=== PATIENT | male | born 1945 | race American Indian/Alaskan Native ===

== ENCOUNTER 2020-02-26 11:56 | Inpatient (IN) | payer MEDICARE ==
[2020-02-26] MEDS ORDERED: SODIUM CHLORIDE 0.9% 500 ML 500 ML IV ONE ×2 (13:12→14:08)
[2020-02-26] MEDS ORDERED: fentaNYL 100 MCG/2 ML INJ IV ONE (13:14)
--- NOTE | 2020-02-26 13:14 | Emergency Department Report ---
ED General Adult HPI - General Chief complaint: GI Bleed Stated complaint: BLOODY STOOL PUI?: No Time Seen by Provider: 02/26/20 12:39 Source: patient, EMS (Verbal report received from emergency medical services. EMS documentation not available at time of chart dictation ), RN notes reviewed, old records reviewed Mode of arrival: Stretcher Limitations: Altered Mental Status, Physical Limitation - History of Present Illness Initial comments: The patient was evaluated in the emergency department for symptoms described in the history of present illness. He/she was evaluated in the context of the global COVID-19 pandemic, which necessitated consideration that the patient might be at risk for infection with the virus that causes COVID-19. Institutional protocols and algorithms that pertain to the evaluation of patients at risk for COVID-19 are in a state of rapid change based on information released by regulatory bodies including the CDC and federal and state organizations. These policies and algorithms were followed during the patient's care in the emergency department. Please note that these policies, procedures and recommendations changed on a rapid basis. The patient is a 74-year-old gentleman. His primary care doctor appears to be a Dr. Jesus Alberto Rivera This medical history is complex and complicated, including recent admission to [facility], for sepsis secondary to urinary tract infection, cystitis, congestive heart failure, hyponatremia, hyperkalemia, gout, intractable pain. Patient has a left upper extremity midline or PICC line, in place, for unclear reasons. He also has a history of portal vein thrombosis, and has been on Coumadin. He is sent to the emergency room by a local [facility]p, with a complaint of possible GI bleed. The patient is a poor historian. The patient indicates diffuse bony pain, which appears to be chronic secondary to his underlying gout. He denies headache, neck pain, chest pain, abdominal pain or shortness of breath. Patient is a poor historian, and has difficulty describing open-ended nature of his symptoms, specifically, he is not able to tell me when his bleeding started, and he is not able to describe the qualitative nature of his symptoms, exacerbating factors, relieving factors, or aggravating factors. He does not know when he last took Coumadin, or systemic anticoagulation. It appears, as per his current prescription database, that he takes 5 mg of Coumadin, each evening. -: unknown Radiation: other Severity scale (0 -10): 0 Quality: other Consistency: other Improves with: other Worsens with: other Associated Symptoms: other - Related Data Allergies Allergy/AdvReac Type Severity Reaction Status Date / Time No Known Allergies Allergy Unverified 02/26/20 12:48 ED Review of Systems ROS: Stated complaint: BLOODY STOOL Other details as noted in HPI Comment: Unobtainable due to pts medical conditions Musculoskeletal: arthralgia, myalgia ED Past Medical Hx - Past Medical History Previous Medical History?: Yes - Social History Smoking Status: Unknown if ever smoked ED Physical Exam - General Limitations: Altered Mental Status, Physical Limitation General appearance: anxious, in distress - Head Head exam: Present: atraumatic, normocephalic - Eye Eye exam: Present: normal appearance, EOMI - ENT ENT exam: Present: mucous membranes dry, normal external ear exam - Neck Neck exam: Present: normal inspection, full ROM. Absent: tenderness, meningismus - Respiratory Respiratory exam: Present: decreased breath sounds. Absent: respiratory distress, wheezes, rales, rhonchi, stridor - Cardiovascular Cardiovascular Exam: Present: normal rhythm, tachycardia, normal heart sounds. Absent: regular rate, bradycardia, irregular rhythm, systolic murmur, diastolic murmur, rubs, gallop - GI/Abdominal GI/Abdominal exam: Present: soft. Absent: distended, tenderness, guarding, rebound, rigid, pulsatile mass - Rectal Rectal exam: Present: normal inspection, heme (+) stool, bloody stool, other (Chaperoned by nurse [facility]) - Extremities Exam Extremities exam: Present: full ROM, pedal edema, other (1+ pulses noted in the bilateral upper extremities. 1+ femoral pulses noted in the bilateral lower extremities.). Absent: normal inspection (Chronic venous stasis noted in the bilateral lower extremities. Surgical scar/site noted with stitches on the right foot, stitches in place, without redness, pus or streaking. Patient has diffuse tophi and gouty lesions on his upper and lower extremities. There is a left upper extremity PICC line or midline.), calf tenderness - Back Exam Back exam: Present: normal inspection. Absent: tenderness, CVA tenderness (R), CVA tenderness (L), paraspinal tenderness, vertebral tenderness - Neurological Exam Neurological exam: Present: alert, other (No facial droop. Tongue midline. Extraocular movements intact bilaterally. Facial sensation intact to light touch in V1, V2, V3 distribution bilaterally. 5 and a 5 strength in 4 extremities. Sensation intact to light touch in 4 extremities.) - Psychiatric Psychiatric exam: Present: anxious - Skin Skin exam: Present: warm ED Course Vital Signs 02/26/20 12:52 Temperature 98.1 F Pulse Rate 111 H Respiratory 16 Rate Blood Pressure 119/65 [Right] O2 Sat by Pulse 100 Oximetry ED Medical Decision Making - Lab Data Result diagrams: 02/26/20 13:34 02/26/20 13:34 Vital Signs 02/26/20 12:52 Temperature 98.1 F Pulse Rate 111 H Respiratory 16 Rate Blood Pressure 119/65 [Right] O2 Sat by Pulse 100 Oximetry Lab Results 02/26/20 02/26/20 02/26/20 Range/Units 13:34 13:34 13:34 WBC 10.2 (4.5-11.0) K/mm3 RBC 2.02 L (3.65-5.03) M/mm3 Hgb 5.7 L* (11.8-15.2) gm/dl Hct 18.3 L* (35.5-45.6) % MCV 90 (84-94) fl MCH 28 (28-32) pg MCHC 31 L (32-34) % RDW 19.7 H (13.2-15.2) % Plt Count 282 (140-440) K/mm3 Lymph % (Auto) 12.6 L (13.4-35.0) % Gem % (Auto) 7.9 H (0.0-7.3) % Eos % (Auto) 1.5 (0.0-4.3) % Baso % (Auto) 0.3 (0.0-1.8) % Lymph # (Auto) 1.3 (1.2-5.4) K/mm3 Gem # (Auto) 0.8 (0.0-0.8) K/mm3 Eos # (Auto) 0.2 (0.0-0.4) K/mm3 Baso # (Auto) 0.0 (0.0-0.1) K/mm3 Seg Neutrophils % 77.7 H (40.0-70.0) % Seg Neutrophils # 7.9 H (1.8-7.7) K/mm3 PT (12.2-14.9) Sec. INR (0.87-1.13) APTT (24.2-36.6) Sec. Sodium (137-145) mmol/L Potassium (3.6-5.0) mmol/L Chloride (98-107) mmol/L Carbon Dioxide (22-30) mmol/L Anion Gap mmol/L BUN (9-20) mg/dL Creatinine (0.8-1.3) mg/dL Estimated GFR ml/min BUN/Creatinine Ratio % Glucose (75-100) mg/dL Calcium (8.4-10.2) mg/dL Magnesium 2.00 (1.7-2.3) mg/dL Total Bilirubin (0.1-1.2) mg/dL AST (5-40) units/L ALT (7-56) units/L Alkaline Phosphatase (35-129) units/L Total Creatine Kinase 141 (55-170) units/L Total Protein (6.3-8.2) g/dL Albumin (3.9-5) g/dL Albumin/Globulin Ratio % TSH 5.440 H (0.270-4.200) mlU/mL Blood Type Antibody Screen Crossmatch 02/26/20 02/26/20 02/26/20 Range/Units 13:34 13:34 13:34 WBC (4.5-11.0) K/mm3 RBC (3.65-5.03) M/mm3 Hgb (11.8-15.2) gm/dl Hct (35.5-45.6) % MCV (84-94) fl MCH (28-32) pg MCHC (32-34) % RDW (13.2-15.2) % Plt Count (140-440) K/mm3 Lymph % (Auto) (13.4-35.0) % Gem % (Auto) (0.0-7.3) % Eos % (Auto) (0.0-4.3) % Baso % (Auto) (0.0-1.8) % Lymph # (Auto) (1.2-5.4) K/mm3 Gem # (Auto) (0.0-0.8) K/mm3 Eos # (Auto) (0.0-0.4) K/mm3 Baso # (Auto) (0.0-0.1) K/mm3 Seg Neutrophils % (40.0-70.0) % Seg Neutrophils # (1.8-7.7) K/mm3 PT 28.2 H (12.2-14.9) Sec. INR 2.58 H (0.87-1.13) APTT 52.5 H (24.2-36.6) Sec. Sodium 154 H (137-145) mmol/L Potassium 3.8 (3.6-5.0) mmol/L Chloride 119.2 H (98-107) mmol/L Carbon Dioxide 27 (22-30) mmol/L Anion Gap 12 mmol/L BUN 45 H (9-20) mg/dL Creatinine 1.0 (0.8-1.3) mg/dL Estimated GFR > 60 ml/min BUN/Creatinine Ratio 45 % Glucose 260 H (75-100) mg/dL Calcium 7.7 L (8.4-10.2) mg/dL Magnesium (1.7-2.3) mg/dL Total Bilirubin 0.20 (0.1-1.2) mg/dL AST 27 (5-40) units/L ALT < 5 L (7-56) units/L Alkaline Phosphatase 97 (35-129) units/L Total Creatine Kinase (55-170) units/L Total Protein 5.4 L (6.3-8.2) g/dL Albumin 1.6 L (3.9-5) g/dL Albumin/Globulin Ratio 0.4 % TSH (0.270-4.200) mlU/mL Blood Type A POSITIVE Antibody Screen Negative Crossmatch See Detail - EKG Data -: EKG Interpreted by Ut EKG shows normal: sinus rhythm Rate: normal - EKG Data When compared to previous EKG there are: previous EKG unavailable 02/26/20 16:07 Sinus rhythm, tachycardia, left axis deviation, QTC within normal limits, motion artifact, SD interval within normal limits, the EKG is abnormal, the EKG is not a STEMI, low voltage in the lateral leads. - Radiology Data Radiology results: report reviewed, image reviewed Print Report Referring Physician: JADEN SCOTT Patient Name: NEERAJ HERNANDEZ Date of : 1945 Sex: Male Report Date: 2020-02-26 Report Status: Finalized Findings [facility] [address] [place] [address] XRay Report Signed Patient: NEERAJ HERNANDEZ MR#: [id number] : 1945 Acct:[id number] Age/Sex: 74 / M ADM Date: 02/26/20 Loc: ED Attending Dr: Ordering Physician: JADEN SCOTT MD Date of Service: 02/26/20 Procedure(s): XR chest 1V ap Accession Number(s): [id number] cc: JADEN SCOTT MD Fluoro Time In Minutes: CHEST 1 VIEW 02/26/2020 1:29 PM INDICATION / CLINICAL INFORMATION: Congestive heart failure, GI bleed COMPARISON: None available. FINDINGS: SUPPORT DEVICES: None. HEART / MEDIASTINUM: No significant abnormality. LUNGS / PLEURA: There is mild increase in the interstitial markings bilaterally. These are prominently perihilar and basilar. There is mild venous congestion. No pneumothorax. ADDITIONAL FINDINGS: No significant additional findings. IMPRESSION: 1. Mild interstitial disease likely represents pulmonary edema. Signer Name: Luther Aguiar MD Signed: 02/26/2020 1:35 PM Workstation Name: [id number] Transcribed By: SS Dictated By: Luther Aguiar MD Electronically Authenticated By: Luther Aguiar MD Signed Date/Time: 02/26/201334 DD/ 33 TD/TT: - Medical Decision Making Differential diagnosis, including but not limited to: Lower GI bleed, Coumadin toxicity, dehydration, electrolyte derangement, pneumonia, urinary tract infection Assessment and plan: 74-year-old gentleman, on Coumadin, for portal venous thrombosis, INR greater than 2.6, hemoglobin 5, hematocrit 18, with dark red blood per rectum. Establish IV access, start IV fluids, give for factor prothrombin complex concentrate, 25 units/kg, initiate vitamin K therapy. IV fluids ordered, urinalysis pending. Transfuse 1 unit of packed red blood cells. Discussed with gastroenterology on-call, Dr. William Tan, we discussed the patient's history, physical, and pertinent laboratory studies. He will see the patient in consultation. Urinalysis pending at this time, discussed with hospital physician, Dr. Jatinder Nunez, who has accepted the patient to the medical service. Hypernatremia reviewed and appreciated, suspect dehydration. Patient has dry mucous membranes. We will defer to the inpatient team to follow-up on urinalysis. Prognosis is guarded. Critical Care Time: Yes Critical care time in (mins) excluding proc time.: 35 Critical care attestation.: If time is entered above; I have spent that time in minutes in the direct care of this critically ill patient, excluding procedure time. ED Disposition Clinical Impression: GI bleed, Coumadin toxicity, Hypernatremia, Gout Disposition: OP ADMIT IP TO THIS HOSP Is pt being admited?: Yes Does the pt Need Aspirin: No Condition: Serious
--- NOTE | 2020-02-26 13:40 | XRay Report ---
CHEST 1 VIEW 02/26/2020 1:29 PM INDICATION / CLINICAL INFORMATION: Congestive heart failure, GI bleed COMPARISON: None available. FINDINGS: SUPPORT DEVICES: None. HEART / MEDIASTINUM: No significant abnormality. LUNGS / PLEURA: There is mild increase in the interstitial markings bilaterally. These are prominentl y perihilar and basilar. There is mild venous congestion. No pneumothorax. ADDITIONAL FINDINGS: No significant additional findings. IMPRESSION: 1. Mild interstitial disease likely represents pulmonary edema. Signer Name: Luther Aguiar MD Signed: 02/26/2020 1:35 PM Workstation Name: [id number]
[2020-02-26 14:02] LABS: Basophils % (Auto) 0.3 % (0.0-1.8); Eosinophils # (Auto) 0.2 K/mm3 (0.0-0.4); Eosinophils % (Auto) 1.5 % (0.0-4.3); Lymphocytes # (Auto) 1.3 K/mm3 (1.2-5.4); Lymphocytes % (Auto) 12.6 % (13.4-35.0); Mean Corpuscular HGB Conc 31 % (32-34); Mean Corpuscular Volume 90 fl (84-94); Monocytes # (Auto) 0.8 K/mm3 (0.0-0.8); Monocytes % (Auto) 7.9 % (0.0-7.3); Platelet Count 282 K/mm3 (140-440); Red Blood Count 2.02 M/mm3 (3.65-5.03); Red Cell Distribution Width 19.7 % (13.2-15.2)
[2020-02-26 14:06] LABS: Hematocrit 18.3 % (35.5-45.6); Hemoglobin 5.7 gm/dl (11.8-15.2)
[2020-02-26 14:17] LABS: INR 2.58 (0.87-1.13)
[2020-02-26] MEDS ORDERED: PHYTONADIONE(ADULT ONLY) 10 MG in SODIUM CHLORIDE 0.9% 50 ML IV ONE (14:18)
[2020-02-26] MEDS ORDERED: PROTHROMBIN COMPLEX HUMAN IV ONE (14:18)
[2020-02-26 14:19] LABS: Partial Thromboplastin Time 52.5 Sec. (24.2-36.6)
[2020-02-26 14:25] LABS: Albumin 1.6 g/dL (3.9-5); BUN/Creatinine Ratio 45; Blood Urea Nitrogen 45 mg/dL (9-20); Calcium 7.7 mg/dL (8.4-10.2); Hemolysis Index 2
--- NOTE | 2020-02-26 14:43 | History and Physical Report ---
History of Present Illness Chief complaint: He is bleeding History of present illness: 74 YO Male [facility] with CHF, Hyponatremia, Gout, Vascular Dementia, Cerebral Atherosclerosis, OA, Portal Vein Thrombosis on Therapeutic Anticoagulation with Comadin presents to ED for evaluation. Patient is confused with diminished cognition and unable to provide detailed history. Patient history taken from EMS staff, ED staff as well as halfway facility staff. As per staff the patient was found to have large volume rectal bleeding today. EMS was notified and upon arrival the patient was found to be in distress and subsequently transported to [facility] for further care and evaluation of the aforementioned symptoms. Patient seen and evaluated in the emergency department. Lab and imaging studies reviewed. Patient found to be Hemoccult positive. Patient found to have symptoms consistent with GI bleed, hyponatremia. Patient admitted to [facility] and initiated on GI bleed protocol. Patient also treated with blood transfusion for concomitant symptomatic anemia. GI team consulted in ED. Patient pending endoscopy as per GI team. Patient is confused with diminished cognition but has positive gag reflex and is able to protect his airway without difficulty. No prior admission for review. No further history is obtainable. All medication listed at time of admission has been reconciled. Past History Past Medical History: heart failure, other (See HPI) Past Surgical History: No surgical history, Other (Reviewed) Social history: . denies: smoking, alcohol abuse, prescription drug abuse Family history: hypertension Medications and Allergies Allergies Allergy/AdvReac Type Severity Reaction Status Date / Time No Known Allergies Allergy Unverified 02/26/20 12:48 Home Medications Medication Instructions Recorded Confirmed Last Taken Type Acetaminophen [Tylenol] 650 mg PO Q8HR 02/26/20 02/26/20 Unknown History AtorvaSTATin [Lipitor] 10 mg PO QHS 02/26/20 02/26/20 Unknown History Cetirizine HCl [ZyrTEC 10mg rapdis] 10 mg PO QDAY 02/26/20 02/26/20 Unknown History Colchicine 0.6 mg PO BID 02/26/20 02/26/20 Unknown History Insulin Lispro 0 unit SQ ACHS 02/26/20 02/26/20 Unknown History Latanoprost 0.005% [Xalatan 0.005%] 1 drop OP QPM 02/26/20 02/26/20 Unknown History Melatonin [Melatonin 5MG CAP] 5 mg PO QHS 02/26/20 02/26/20 Unknown History Timolol 0.5% [Timoptic] 1 drops OP BID 02/26/20 02/26/20 Unknown History Warfarin Sodium [Coumadin] 5 mg PO QHS 02/26/20 02/26/20 Unknown History amLODIPine [Norvasc] 5 mg PO DAILY 02/26/20 02/26/20 Unknown History carvediloL [Coreg] 25 mg PO BID 02/26/20 02/26/20 Unknown History clonazePAM [ Klonopin] 0.5 mg PO BID PRN 02/26/20 02/26/20 Unknown History dronabinoL [Marinol] 5 mg PO QDAY 02/26/20 02/26/20 Unknown History Active Meds: Active Medications Phytonadione 10 mg/ Sodium (Chloride) 51 mls @ 100 mls/hr IV ONCE ONE Stop: 02/26/20 14:48 PROTHROMBIN COMPLEX HUMAN(PCC) 1,575 unit/ Miscellaneous Information 500 mls @ 0 mls/hr IV ONCE ONE Stop: 02/26/20 14:19 Review of Systems ROS unobtainable: due to mental status Exam - Constitutional Vitals: Temp Pulse Resp BP Pulse Ox 98.1 F 111 H 16 119/65 100 02/26/20 12:52 02/26/20 12:52 02/26/20 12:52 02/26/20 12:52 02/26/20 12:52 General appearance: Present: mild distress - EENT Eyes: Present: PERRL (Conjunctival pallor) ENT: hearing intact, clear oral mucosa - Neck Neck: Present: supple, normal ROM - Respiratory Respiratory effort: normal Respiratory: bilateral: CTA - Cardiovascular Rhythm: regular Heart Sounds: Present: S1 & S2 - Extremities Extremities: no ischemia Peripheral Pulses: within normal limits - Abdominal General gastrointestinal: Present: soft, non-tender, non-distended - Integumentary Integumentary: Present: clear, dry - Musculoskeletal Musculoskeletal: generalized weakness - Psychiatric Psychiatric: no appropriate mood/affect, no intact judgment & insight, no memory intact - Neurologic Neurologic: CNII-XII intact, no focal deficits, moves all extremities, no gait normal Results - Labs CBC & Chem 7: 02/26/20 13:34 02/26/20 13:34 Labs: Abnormal lab results 11/04/0402/26/20 02/26/20 Range/Units 13:34 13:34 13:34 RBC 2.02 L (3.65-5.03) M/mm3 Hgb 5.7 L* (11.8-15.2) gm/dl Hct 18.3 L* (35.5-45.6) % MCHC 31 L (32-34) % RDW 19.7 H (13.2-15.2) % Lymph % (Auto) 12.6 L (13.4-35.0) % Reeves % (Auto) 7.9 H (0.0-7.3) % Seg Neutrophils % 77.7 H (40.0-70.0) % Seg Neutrophils # 7.9 H (1.8-7.7) K/mm3 PT 28.2 H (12.2-14.9) Sec. INR 2.58 H (0.87-1.13) APTT 52.5 H (24.2-36.6) Sec. Sodium (137-145) mmol/L Chloride (98-107) mmol/L BUN (9-20) mg/dL Glucose (75-100) mg/dL Calcium (8.4-10.2) mg/dL Total Protein (6.3-8.2) g/dL Albumin (3.9-5) g/dL TSH 5.440 H (0.270-4.200) mlU/mL Crossmatch 02/26/20 02/26/20 Range/Units 13:34 13:34 RBC (3.65-5.03) M/mm3 Hgb (11.8-15.2) gm/dl Hct (35.5-45.6) % MCHC (32-34) % RDW (13.2-15.2) % Lymph % (Auto) (13.4-35.0) % Reeves % (Auto) (0.0-7.3) % Seg Neutrophils % (40.0-70.0) % Seg Neutrophils # (1.8-7.7) K/mm3 PT (12.2-14.9) Sec. INR (0.87-1.13) APTT (24.2-36.6) Sec. Sodium 154 H (137-145) mmol/L Chloride 119.2 H (98-107) mmol/L BUN 45 H (9-20) mg/dL Glucose 260 H (75-100) mg/dL Calcium 7.7 L (8.4-10.2) mg/dL Total Protein 5.4 L (6.3-8.2) g/dL Albumin 1.6 L (3.9-5) g/dL TSH (0.270-4.200) mlU/mL Crossmatch See Detail Assessment and Plan - Patient Problems (1) GI bleed Current Visit: Yes Status: Acute Plan to address problem: GI bleed protocol: IV PPI therapy, GI team consulted in ED, packed red blood cell transfusion, admit to IMCU, supportive care, (2) Hypernatremia Current Visit: Yes Status: Acute Plan to address problem: D5 water, CMP, repeat CMP in a.m. (3) Symptomatic anemia Current Visit: Yes Status: Acute Plan to address problem: Packed red blood cell transfusion, repeat CBC in a.m. (4) Metabolic encephalopathy Current Visit: Yes Status: Acute Plan to address problem: Neuro check, seizure precautions, aspiration precautions, fall precautions, supportive care. (5) Vascular dementia Current Visit: Yes Status: Acute Qualifiers: Dementia behavioral disturbance: without behavioral disturbance Qualified Code(s): F01.50 - Vascular dementia without behavioral disturbance Plan to address problem: Verbal prompting, verbal redirection, benzodiazepine therapy as clinically indicated, supportive care. (6) Cerebral atherosclerosis Current Visit: Yes Status: Acute Plan to address problem: Supportive care, risk factor reduction, low-cholesterol diet. (7) Portal vein thrombosis Current Visit: Yes Status: Acute Plan to address problem: Hold anticoagulation for now due to active GI bleed, supportive care (8) DVT prophylaxis Current Visit: Yes Status: Acute Plan to address problem: SCD to bilateral lower extremities while in bed, hold anticoagulation now due to active GI bleed. (9) Advance care planning Current Visit: Yes Status: Acute Plan to address problem: Disease education conducted, patient is full code, prognosis discussed, halfway facility staff acknowledges understanding and agreement with care plan.
[2020-02-26 14:47] LABS: Alanine Aminotransferase < 5 units/L (7-56)
[2020-02-26] MEDS ORDERED: PROTHROMBIN HUMAN COMPLEX (PCC) PER 1 UNIT IV ONE (15:00)
[2020-02-26] MEDS ORDERED: DEXTROSE 50% IN WATER (25GM) 50 ML SYRINGE IV PRN (18:06)
[2020-02-26] MEDS ORDERED: SODIUM CHLORIDE 0.9% 500 ML 500 ML IV NR (18:11)
[2020-02-26] MEDS: INSULIN LISPRO 100 UNIT/ML VIAL 3 mL SUB-Q SCH (18:50)
[2020-02-26] MEDS ORDERED: fentaNYL 100 MCG/2 ML INJ ONE (19:24)
[2020-02-26] MEDS: fentaNYL 100 MCG/2 ML INJ IV PRN (19:28)
[2020-02-26] MEDS: DEXTROSE 5% IN WATER 1,000 ML IV SCH (21:52)
[2020-02-26] MEDS: PANTOPRAZOLE 40 MG INJ IV SCH (21:52)
[2020-02-27] MEDS: fentaNYL 100 MCG/2 ML INJ IV PRN ×3 (00:33→15:01)
[2020-02-27] MEDS: INSULIN LISPRO 100 UNIT/ML VIAL 3 mL SUB-Q SCH ×4 (00:56→18:02)
[2020-02-27 03:28] LABS: Bilirubin,Urine NEG (Negative); Blood,Urine NEG (Negative); Color,Urine Yellow (Yellow); Hyaline Casts,Urine 1 /LPF; Urobilinogen,Urine < 2.0 mg/dL (<2.0)
[2020-02-27 06:27] LABS: Basophils % (Auto) 0.3 % (0.0-1.8); Eosinophils # (Auto) 0.1 K/mm3 (0.0-0.4); Eosinophils % (Auto) 1.3 % (0.0-4.3); Hematocrit 25.7 % (35.5-45.6); Hemoglobin 8.5 gm/dl (11.8-15.2); Lymphocytes # (Auto) 1.1 K/mm3 (1.2-5.4); Lymphocytes % (Auto) 11.9 % (13.4-35.0); Mean Corpuscular HGB Conc 33 % (32-34); Mean Corpuscular Volume 89 fl (84-94); Monocytes # (Auto) 0.9 K/mm3 (0.0-0.8); Monocytes % (Auto) 9.3 % (0.0-7.3); Platelet Count 203 K/mm3 (140-440); Red Blood Count 2.89 M/mm3 (3.65-5.03); Red Cell Distribution Width 17.5 % (13.2-15.2)
[2020-02-27 06:32] LABS: BUN/Creatinine Ratio 48; Blood Urea Nitrogen 43 mg/dL (9-20); Calcium 7.6 mg/dL (8.4-10.2); Hemolysis Index 2
[2020-02-27] MEDS: DEXTROSE 5% IN WATER 1,000 ML IV SCH (09:00)
[2020-02-27] MEDS: PANTOPRAZOLE 40 MG INJ IV SCH (09:00)
--- NOTE | 2020-02-27 12:19 | Progress Note ---
Assessment and Plan Assessment and plan: GI bleed GI bleed protocol: IV PPI therapy, GI team consulted in ED, packed red blood cell transfusion, admit to IMCU, supportive care, Hypernatremia D5 water, CMP, repeat CMP in a.m. Symptomatic anemia Packed red blood cell transfusion, repeat CBC in a.m. Metabolic encephalopathy Neuro check, seizure precautions, aspiration precautions, fall precautions, supportive care. Vascular dementia Verbal prompting, verbal redirection, benzodiazepine therapy as clinically indicated, supportive care. Cerebral atherosclerosis Supportive care, risk factor reduction, low-cholesterol diet. Portal vein thrombosis Hold anticoagulation for now due to active GI bleed, supportive care DVT prophylaxis SCD to bilateral lower extremities while in bed, hold anticoagulation now due to active GI bleed. History Interval history: No new issues Hospitalist Physical - Constitutional Vitals: Temp Pulse Resp BP Pulse Ox 97.4 F L 104 H 22 112/65 96 02/27/20 08:00 02/27/20 09:01 02/27/20 09:01 02/27/20 09:01 02/27/20 09:01 General appearance: Present: mild distress - EENT Eyes: Present: PERRL, EOM intact ENT: hearing intact, clear oral mucosa, dentition normal - Neck Neck: Present: supple, normal ROM - Respiratory Respiratory effort: normal Respiratory: bilateral: CTA - Cardiovascular Rhythm: regular Heart Sounds: Present: S1 & S2. Absent: gallop, rub - Extremities Extremities: no ischemia, No edema, Full ROM - Abdominal General gastrointestinal: soft, non-tender, non-distended, normal bowel sounds - Integumentary Integumentary: Present: clear, warm, dry - Neurologic Neurologic: CNII-XII intact, moves all extremities Results - Labs CBC & Chem 7: 02/27/20 05:40 02/27/20 05:40 Labs: Laboratory Last Values WBC 9.5 K/mm3 (4.5-11.0) 02/27/20 05:40 RBC 2.89 M/mm3 (3.65-5.03) L 02/27/20 05:40 Hgb 8.5 gm/dl (11.8-15.2) L 02/27/20 05:40 Hct 25.7 % (35.5-45.6) L D 02/27/20 05:40 MCV 89 fl (84-94) 02/27/20 05:40 MCH 30 pg (28-32) 02/27/20 05:40 MCHC 33 % (32-34) 02/27/20 05:40 RDW 17.5 % (13.2-15.2) H 02/27/20 05:40 Plt Count 203 K/mm3 (140-440) 02/27/20 05:40 Lymph % (Auto) 11.9 % (13.4-35.0) L 02/27/20 05:40 [place] % (Auto) 9.3 % (0.0-7.3) H 02/27/20 05:40 Eos % (Auto) 1.3 % (0.0-4.3) 02/27/20 05:40 Baso % (Auto) 0.3 % (0.0-1.8) 02/27/20 05:40 Lymph # (Auto) 1.1 K/mm3 (1.2-5.4) L 02/27/20 05:40 [place] # (Auto) 0.9 K/mm3 (0.0-0.8) H 02/27/20 05:40 Eos # (Auto) 0.1 K/mm3 (0.0-0.4) 02/27/20 05:40 Baso # (Auto) 0.0 K/mm3 (0.0-0.1) 02/27/20 05:40 Seg Neutrophils % 77.2 % (40.0-70.0) H 02/27/20 05:40 Seg Neutrophils # 7.3 K/mm3 (1.8-7.7) 02/27/20 05:40 PT 28.2 Sec. (12.2-14.9) H 02/26/20 13:34 INR 2.58 (0.87-1.13) H 02/26/20 13:34 APTT 52.5 Sec. (24.2-36.6) H 02/26/20 13:34 Sodium 154 mmol/L (137-145) H 02/27/20 05:40 Potassium 3.7 mmol/L (3.6-5.0) 02/27/20 05:40 Chloride 121.3 mmol/L (98-107) H 02/27/20 05:40 Carbon Dioxide 26 mmol/L (22-30) 02/27/20 05:40 Anion Gap 10 mmol/L 02/27/20 05:40 BUN 43 mg/dL (9-20) H 02/27/20 05:40 Creatinine 0.9 mg/dL (0.8-1.3) 02/27/20 05:40 Estimated GFR > 60 ml/min 02/27/20 05:40 BUN/Creatinine Ratio 48 % 02/27/20 05:40 Glucose 302 mg/dL (75-100) H 02/27/20 05:40 POC Glucose 287 mg/dL (70-105) H 02/27/20 05:58 Calcium 7.6 mg/dL (8.4-10.2) L 02/27/20 05:40 Magnesium 2.00 mg/dL (1.7-2.3) 02/26/20 13:34 Total Bilirubin 0.20 mg/dL (0.1-1.2) 02/26/20 13:34 AST 27 units/L (5-40) 02/26/20 13:34 ALT < 5 units/L (7-56) L 02/26/20 13:34 Alkaline Phosphatase 97 units/L (35-129) 02/26/20 13:34 Total Creatine Kinase 141 units/L (55-170) 02/26/20 13:34 Total Protein 5.4 g/dL (6.3-8.2) L 02/26/20 13:34 Albumin 1.6 g/dL (3.9-5) L 02/26/20 13:34 Albumin/Globulin Ratio 0.4 % 02/26/20 13:34 TSH 5.440 mlU/mL (0.270-4.200) H 02/26/20 13:34 Urine Color Yellow (Yellow) 02/26/20 03:10 Urine Turbidity Clear (Clear) 02/26/20 03:10 Urine pH 7.0 (5.0-7.0) 02/26/20 03:10 Ur Specific [place] 1.017 (1.003-1.030) 02/26/20 03:10 Urine Protein 30 mg/dl mg/dL (Negative) 02/26/20 03:10 Urine Glucose (UA) 50 mg/dL (Negative) 02/26/20 03:10 Urine Ketones Tr mg/dL (Negative) 02/26/20 03:10 Urine Blood Neg (Negative) 02/26/20 03:10 Urine Nitrite Neg (Negative) 02/26/20 03:10 Urine Bilirubin Neg (Negative) 02/26/20 03:10 Urine Urobilinogen < 2.0 mg/dL (<2.0) 02/26/20 03:10 Ur Leukocyte Esterase Neg (Negative) 02/26/20 03:10 Urine WBC (Auto) 5.0 /HPF (0.0-6.0) 02/26/20 03:10 Urine RBC (Auto) 1.0 /HPF (0.0-6.0) 02/26/20 03:10 U Epithel Cells (Auto) 1.0 /HPF (0-13.0) 02/26/20 03:10 Hyaline Casts 1 /LPF 02/26/20 03:10 Urine Yeast (Budding) Few /HPF 02/26/20 03:10 Blood Type A POSITIVE 02/26/20 13:34 Antibody Screen Negative 02/26/20 13:34 Crossmatch See Detail 02/26/20 13:34 Vazquez/IV: Voiding Method Condom Catheter IV Catheter Type [Left Upper PICC Line arm] IV Catheter Type [Right Hand] Peripheral IV Active Medications - Current Medications Current Medications: Generic Name Dose Route Start Last Admin Trade Name Freq PRN Reason Stop Dose Admin Dextrose 50 ml 02/26/20 18:06 D50w (25gm) Syringe IV Q30MIN PRN Hypoglycemia Protocol Fentanyl 25 mcg 02/26/20 19:20 02/27/20 06:03 Sublimaze IV 25 mcg Q4H PRN Administration Pain , Severe (7-10) Dextrose 1,000 mls @ 100 mls/hr 02/26/20 19:00 02/27/20 09:00 D5w IV 100 mls/hr DIRECT RADHA Administration Insulin Human Lispro 0 unit 02/26/20 19:00 02/27/20 06:06 Humalog SUB-Q 4 unit Q6H RADHA Administration Protocol Pantoprazole Sodium 40 mg 02/26/20 22:00 02/27/20 09:00 Protonix IV 40 mg BID RADHA Administration Sodium Chloride 10 ml 02/26/20 22:00 02/27/20 09:00 Sodium Chloride Flush Syringe 10 Ml IV 10 ml BID RADHA Administration Sodium Chloride 10 ml 02/26/20 14:44 Sodium Chloride Flush Syringe 10 Ml IV PRN PRN LINE FLUSH Nutrition/Malnutrition Assess - Dietary Evaluation Nutrition/Malnutrition Findings: Nutrition Notes Start: 02/27/20 11:10 Freq: Status: Active Protocol: Document 02/27/20 11:51 AL (Rec: 02/27/20 12:09 AL [id number]) Co-Sign 02/27/20 11:51 MK Nutrition Notes Need for Assessment generated from: MD Order,bag washer,MST Initial or Follow up Assessment Current Diagnosis Heart Failure Other Pertinent Diagnosis vascular dementia, GI bleed, hyponatremia, goat, multiple wounds Current Diet Cardiac/Consistent CHO Labs/Tests Na 154 BUN 43 BG 302 Pertinent Medications HUmalog NS 50 mls/hr Height 5 ft 1 in Weight 69.9 kg [place] Body Weight (kg) 50.90 BMI 29.1 Weight Status Overweight Subjective/Other Information Unable to interview patient d/ t confusion and moaning. Per RN, patient has not been able to eat much of his meals orally. Patient was previously on Glucerna 1.5 at 45 mL/hr for 20 hrs/day at [facility], per chart. Percent of energy/protein needs met: 0%/0% Burn Absent Trauma Absent GI Symptoms None Current % PO Poor (25-49%) Minimum of two criteria No #1 Nutrition Diagnosis Inadequate oral intake Etiology chronic illness As Evidenced by Signs and Symptoms pt has PEG placement, eating < 25% of meals Is patient on ventilator? No Is Patient Ambulatory and/or Out of Bed No REE-([facility]-confined to bed) 1563.216 Calculation Used for Recommendations [facility] Additional Notes Protein Needs: 84-140 (1.2-2 g /kg ABW) Fluid Needs: 1 mL/kcal Nutrition Intervention Change Diet Order: Initiate TF via PEG per GI recommendations Nutrition Support: Glucerna 1.2 at 55 mL/hr (goal rate) Flush 85 mL q4h. Kcal 1,584 Protein (gm) 79 Fluid (mL) 1,063 Goal #1 Initiate TF Goal #2 Meet at least 80% of estimated energy and protein needs via TF Anticipated Discharge Needs: Enteral nutrition support Follow-Up By: 03/01/20 Additional Comments F/U for TF start/intakes
[2020-02-27] MEDS ORDERED: LIDOCAINE MPF (2%) 20 MG/1 ML VIAL 5 ML ONE (15:00)
--- NOTE | 2020-02-27 15:10 | Gastroenterology Consultation ---
History of Present Illness - Reason for Consult Consult date: 02/27/20 Acute blood loss anemia Requesting physician: MUSA HERRERA Past History Past Medical History: anemia (Chronic anemia with hct baseline approx 25; extensive negative w/u [facility]), cancer (Colon Cancer (TisN0) R hemicolectomy 11/2019), diabetes, heart failure (EF 40% [place] 2019), hypertension, hyperlipidemia, other (Portal vein thrombosis (dx 2012; chronic warfarin); gout) Past Surgical History: bowel surgery, Other (R hemicolectomy (Colon cancer 11/2019); Subtotal colectomy (recurrent GI Bleed 11/2019); RLE angioplasty/stent 01/2020; 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 denies: smoking, alcohol abuse, prescription drug abuse Family history: hypertension Medications and Allergies Allergies Allergy/AdvReac Type Severity Reaction Status Date / Time No Known Allergies Allergy Unverified 02/26/20 12:48 Home Medications Medication Instructions Recorded Confirmed Last Taken Type Acetaminophen [Tylenol] 650 mg PO Q8HR 02/26/20 02/26/20 Unknown History AtorvaSTATin [Lipitor] 10 mg PO QHS 02/26/20 02/26/20 Unknown History Cetirizine HCl [ZyrTEC 10mg rapdis] 10 mg PO QDAY 02/26/20 02/26/20 Unknown History Colchicine 0.6 mg PO BID 02/26/20 02/26/20 Unknown History Insulin Lispro 0 unit SQ ACHS 02/26/20 02/26/20 Unknown History Latanoprost 0.005% [Xalatan 0.005%] 1 drop OP QPM 02/26/20 02/26/20 Unknown History Melatonin [Melatonin 5MG CAP] 5 mg PO QHS 02/26/20 02/26/20 Unknown History Timolol 0.5% [Timoptic] 1 drops OP BID 02/26/20 02/26/20 Unknown History Warfarin Sodium [Coumadin] 5 mg PO QHS 02/26/20 02/26/20 Unknown History amLODIPine [Norvasc] 5 mg PO DAILY 02/26/20 02/26/20 Unknown History carvediloL [Coreg] 25 mg PO BID 02/26/20 02/26/20 Unknown History clonazePAM [ Klonopin] 0.5 mg PO BID PRN 02/26/20 02/26/20 Unknown History dronabinoL [Marinol] 5 mg PO QDAY 02/26/20 02/26/20 Unknown History Active Meds: Active Medications Dextrose (D50w (25gm) Syringe) 50 ml IV Q30MIN PRN; Protocol PRN Reason: Hypoglycemia Fentanyl (Sublimaze) 25 mcg IV Q4H PRN PRN Reason: Pain , Severe (7-10) Last Admin: 02/27/20 15:01 Dose: 25 mcg Documented by: Dextrose (D5w) 1,000 mls @ 100 mls/hr IV DIRECT RADHA Last Admin: 02/27/20 09:00 Dose: 100 mls/hr Documented by: Insulin Human Lispro (Humalog) 0 unit SUB-Q Q6H RADHA; Protocol Last Admin: 02/27/20 13:08 Dose: 8 unit Documented by: Pantoprazole Sodium (Protonix) 40 mg IV BID RADHA Last Admin: 02/27/20 09:00 Dose: 40 mg Documented by: Sodium Chloride (Sodium Chloride Flush Syringe 10 Ml) 10 ml IV BID RADHA Last Admin: 02/27/20 09:00 Dose: 10 ml Documented by: Sodium Chloride (Sodium Chloride Flush Syringe 10 Ml) 10 ml IV PRN PRN PRN Reason: LINE FLUSH REVIEWED AND RECONCILED Review of Systems - Review of Systems ROS unobtainable: due to mental status Exam - Constitutional Vital Signs: Temp Pulse Resp BP Pulse Ox 97.6 F 92 H 15 148/66 97 02/27/20 12:00 02/27/20 14:00 02/27/20 14:00 02/27/20 14:00 02/27/20 14:00 General appearance: no acute distress - EENT Eyes: PERRL, EOM intact ENT: hearing intact, poor dentition - Neck Neck: supple, normal ROM - Respiratory Respiratory effort: normal Respiratory: bilateral: CTA - Cardiovascular Rhythm: regular Heart Sounds: Present: S1 & S2 Extremities: no ischemia, No edema - Gastrointestinal General gastrointestinal: Present: soft, non-tender, non-distended, other (PEG in LUQ) - Integumentary Integumentary: Present: clear, warm, dry - Neurologic Neurological: alert and oriented x3 - Labs CBC & Chem 7: 02/27/20 05:40 02/27/20 05:40 Lab Results: Laboratory Results - last 24 hr 02/26/20 02/26/20 02/27/20 03:10 13:34 00:44 WBC RBC Hgb Hct MCV MCH MCHC RDW Plt Count Lymph % (Auto) [place] % (Auto) Eos % (Auto) Baso % (Auto) Lymph # (Auto) [place] # (Auto) Eos # (Auto) Baso # (Auto) Seg Neutrophils % Seg Neutrophils # Sodium Potassium Chloride Carbon Dioxide Anion Gap BUN Creatinine Estimated GFR BUN/Creatinine Ratio Glucose POC Glucose 307 H Calcium Urine Color Yellow Urine Turbidity Clear Urine pH 7.0 Ur Specific [place] 1.017 Urine Protein 30 mg/dl Urine Glucose (UA) 50 Urine Ketones Tr Urine Blood Neg Urine Nitrite Neg Urine Bilirubin Neg Urine Urobilinogen < 2.0 Ur Leukocyte Esterase Neg Urine WBC (Auto) 5.0 Urine RBC (Auto) 1.0 U Epithel Cells (Auto) 1.0 Hyaline Casts 1 Urine Yeast (Budding) Few Blood Type A POSITIVE Antibody Screen Negative Crossmatch See Detail 02/27/20 02/27/20 02/27/20 05:40 05:40 05:58 WBC 9.5 RBC 2.89 L Hgb 8.5 L Hct 25.7 L D MCV 89 MCH 30 MCHC 33 RDW 17.5 H Plt Count 203 Lymph % (Auto) 11.9 L [place] % (Auto) 9.3 H Eos % (Auto) 1.3 Baso % (Auto) 0.3 Lymph # (Auto) 1.1 L [place] # (Auto) 0.9 H Eos # (Auto) 0.1 Baso # (Auto) 0.0 Seg Neutrophils % 77.2 H Seg Neutrophils # 7.3 Sodium 154 H Potassium 3.7 Chloride 121.3 H Carbon Dioxide 26 Anion Gap 10 BUN 43 H Creatinine 0.9 Estimated GFR > 60 BUN/Creatinine Ratio 48 Glucose 302 H POC Glucose 287 H Calcium 7.6 L Urine Color Urine Turbidity Urine pH Ur Specific [place] Urine Protein Urine Glucose (UA) Urine Ketones Urine Blood Urine Nitrite Urine Bilirubin Urine Urobilinogen Ur Leukocyte Esterase Urine WBC (Auto) Urine RBC (Auto) U Epithel Cells (Auto) Hyaline Casts Urine Yeast (Budding) Blood Type Antibody Screen Crossmatch Assessment and Plan - Patient Problems (1) Recurrent gastrointestinal hemorrhage Current Visit: Yes Status: Acute Plan to address problem: - Hx of recurrent GI bleed at [facility]; EGD (-) x 2; R Hemicolectomy then subtotal colectomy 11/2019 for colonic bleeding - No hematemesis or bleeding around PEG - Patient has been on coumadin x 7 years for portal vein thrombosis, but no recent imaging of PV at [place], and not clear he needs this (does have a hx of severe PAD as well as CHF 40%) - Suspect a small bowel source, but would not put patient through small bowel enteroscopy at present; would instead d/c coumadin and observe - Will perform EGD today given recent/new PEG in December - Continue daily protonix (2) Portal vein thrombosis Current Visit: Yes Status: Acute
[2020-02-27] MEDS ORDERED: WATER FOR IRRIG STERILE 1,000 ML BOTTLE ONE (15:14)
[2020-02-27] MEDS ORDERED: WATER FOR IRRIG STERILE 250 ML BOTTLE IR ONE (15:14)
[2020-02-27] MEDS ORDERED: propofoL 200 MG/20 ML VIAL IV ONE ×2 (15:20)
[2020-02-27] MEDS ORDERED: SODIUM CHLORIDE 0.9% 1000 ML 1,000 ML IV SCH (15:30)
--- NOTE | 2020-02-27 15:31 | Anesthesia Day of Surgery ---
Anesthesia Day of Surgery - Day of Surgery Patient Examined: Yes Patient H&P Reviewed: Yes Patient is NPO: No (Emergency case)
--- NOTE | 2020-02-27 15:33 | Anesthesia Consultation ---
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 Patient is confused with diminished cognition and unable to provide detailed history. Spoke with , Felipa Harris, over the phone
[2020-02-27] MEDS ORDERED: SIMPLE SYRUP 15 ML FEEDTUBE PRN ×2 (16:00)
[2020-02-27] MEDS ORDERED: LIPASE 10,500/PROTEASE 25,000/AMYLASE 43,750 (UNITS) DR CAP FEEDTUBE PRN (16:00)
[2020-02-27] MEDS ORDERED: SODIUM BICARBONATE 325 MG TAB FEEDTUBE PRN (16:00)
[2020-02-27] MEDS: SODIUM CHLORIDE 0.45% 1000 ML 1,000 ML IV SCH (16:02)
--- NOTE | 2020-02-27 16:30 | Post Operative Note ---
Pre-op diagnosis: GI Bleed Post-op diagnosis: other (PEG tube present, otherwise negative) Findings: 1. No evidence of upper GI bleeding 2. PEG present in the body of stomach (balloon type) 3. No varices in stomach or esophagus Procedure: EGD Anesthesia: MAC Surgeon: AGUILA STOCKTON Estimated blood loss: none Pathology: none Specimen disposition: other (N/A) Condition: stable Disposition: floor (Recs: 1. Would question need for long-term coumadin given PV thrombosis was 7 years ago, and the patient has a hx of recurrent GI bleeds. 2. Would recommend instead daily plavix (given recent stent in leg). 3. If bleeds on plavix, then could consider SB enteroscopy, but given multiple comorbids, would also consider palliative care discussion with (per [place] recs, he was CPR only already; did not want intubation/ventilation). 4. OK to resume PEG (or PO) feeds.)
--- NOTE | 2020-02-27 16:48 | Post Anesthesia Evaluation ---
- Post Anesthesia Evaluation Patient Participated: Yes Airway Patent: Yes Stable Respiratory Function: Yes Nausea/Vomiting: No Temp > 96.8F: Yes Pain Manageable: Yes Adequeate Hydration: Yes Anesthesia Complications: No Block Receding Appropriately: Not Applicable Patient on Ventilator: No
[2020-02-27] MEDS: MULTIVITAMINS 5 ML ORAL LIQUID FEEDTUBE SCH (17:27)
--- NOTE | 2020-02-27 19:44 | Operative Report ---
PROCEDURE PERFORMED: Esophagogastroduodenoscopy. PREOPERATIVE DIAGNOSIS: Recurrent gastrointestinal bleeding. POSTOPERATIVE DIAGNOSIS: Normal other than the presence of a gastrostomy tube. ENDOSCOPIST: William Tan MD INSTRUMENT: Olympus video endoscope. MEDICATIONS: MAC anesthesia by Anesthesia services. COMPLICATIONS: No apparent complications. ESTIMATED BLOOD LOSS: None. SPECIMENS: None. IMPLANTS: None. ASSISTANTS: None. CONDITION AT COMPLETION: Stable. TECHNIQUE: The patient's was informed of the risks and benefits of the procedure given the patient's chronic mental status changes. After consent was obtained, the patient was placed in the left lateral decubitus position. The above sedative medications were given. His vital signs remained stable throughout the procedure. The instrument was advanced from the mouth to the second portion of the duodenum under direct visualization. At that point, the bowel was insufflated and the endoscope was slowly withdrawn. FINDINGS: 1. No evidence of upper GI bleeding with no bright red blood and no blood clots present. 2. Gastrostomy tube was present in the body of the stomach. 3. No evidence of varices in the stomach or the esophagus. 4. Normal duodenum. RECOMMENDATIONS: 1. I question the need for long-term Coumadin therapy given his portal vein thrombosis was 7 years ago, and the patient has a history of recurrent GI bleeding, requiring subtotal colectomy. 2. I would recommend instead daily Plavix given the recent stent in his leg. If the patient bleeds on Plavix, then I would consider small bowel enteroscopy, but given multiple comorbids, would also consider a palliative care discussion with the . Per the [facility] records, he was CPR only, he did not want intubation or ventilation. 3. Okay to resume PEG or oral feeds. JOB# [id number] VALERIE/NTS
[2020-02-28] MEDS: INSULIN LISPRO 100 UNIT/ML VIAL 3 mL SUB-Q SCH ×4 (01:00→14:00)
[2020-02-28] MEDS: SODIUM CHLORIDE 0.45% 1000 ML 1,000 ML IV SCH ×2 (02:15→12:41)
[2020-02-28 08:37] LABS: Hematocrit 27.3 % (35.5-45.6); Hemoglobin 8.9 gm/dl (11.8-15.2); Mean Corpuscular HGB Conc 33 % (32-34); Mean Corpuscular Volume 89 fl (84-94); Platelet Count 195 K/mm3 (140-440); Red Blood Count 3.07 M/mm3 (3.65-5.03); Red Cell Distribution Width 17.9 % (13.2-15.2)
[2020-02-28 08:50] LABS: INR 1.39 (0.87-1.13)
[2020-02-28 08:57] LABS: Blood Urea Nitrogen 31 mg/dL (9-20); Calcium 7.5 mg/dL (8.4-10.2); Hemolysis Index 8
[2020-02-28 09:00] LABS: BUN/Creatinine Ratio 44
[2020-02-28] MEDS: MULTIVITAMINS 5 ML ORAL LIQUID FEEDTUBE SCH ×2 (09:42→16:23)
[2020-02-28] MEDS: LANSOPRAZOLE 30 MG SOLUTAB FEEDTUBE SCH (09:42)
--- NOTE | 2020-02-28 11:33 | Progress Note ---
Assessment and Plan Assessment and plan: GI bleed GI bleed protocol: IV PPI therapy, GI team consulted in ED, packed red blood cell transfusion, admit to IMCU, supportive care, Hypernatremia D5 water, CMP, repeat CMP in a.m. Symptomatic anemia Packed red blood cell transfusion, repeat CBC in a.m. Metabolic encephalopathy Neuro check, seizure precautions, aspiration precautions, fall precautions, supportive care. Vascular dementia Verbal prompting, verbal redirection, benzodiazepine therapy as clinically indicated, supportive care. Cerebral atherosclerosis Supportive care, risk factor reduction, low-cholesterol diet. Portal vein thrombosis Hold anticoagulation for now due to active GI bleed, supportive care DVT prophylaxis SCD to bilateral lower extremities while in bed, hold anticoagulation now due to active GI bleed. 02/28/2020. Patient with episode of black tarry stool last night and a second episode this morning. Patient is s/p EGD on 02/27/2020 which revealed no evidence of upper GI bleeding and no varices in the stomach or esophagus. Check serial CBC. GI may need to perform SB enteroscopy. However, GI may consider palliative care discussion. Hold Plavix for today. History Interval history: No new issues Hospitalist Physical - Constitutional Vitals: Temp Pulse Resp BP Pulse Ox 97.9 F 110 H 25 H 131/79 99 02/28/20 08:00 02/28/20 09:00 02/28/20 09:00 02/28/20 09:00 02/28/20 09:00 General appearance: Present: mild distress - EENT Eyes: Present: PERRL, EOM intact ENT: hearing intact, clear oral mucosa, dentition normal - Neck Neck: Present: supple, normal ROM - Respiratory Respiratory effort: normal Respiratory: bilateral: CTA - Cardiovascular Rhythm: regular Heart Sounds: Present: S1 & S2. Absent: gallop, rub - Extremities Extremities: no ischemia, No edema, Full ROM - Abdominal General gastrointestinal: soft, non-tender, non-distended, normal bowel sounds - Integumentary Integumentary: Present: clear, warm, dry - Neurologic Neurologic: CNII-XII intact, moves all extremities Results - Labs CBC & Chem 7: 02/28/20 08:08 02/28/20 08:08 Labs: Laboratory Last Values WBC 8.2 K/mm3 (4.5-11.0) 02/28/20 08:08 RBC 3.07 M/mm3 (3.65-5.03) L 02/28/20 08:08 Hgb 8.9 gm/dl (11.8-15.2) L 02/28/20 08:08 Hct 27.3 % (35.5-45.6) L 02/28/20 08:08 MCV 89 fl (84-94) 02/28/20 08:08 MCH 29 pg (28-32) 02/28/20 08:08 MCHC 33 % (32-34) 02/28/20 08:08 RDW 17.9 % (13.2-15.2) H 02/28/20 08:08 Plt Count 195 K/mm3 (140-440) 02/28/20 08:08 Lymph % (Auto) 11.9 % (13.4-35.0) L 02/27/20 05:40 Evangeline % (Auto) 9.3 % (0.0-7.3) H 02/27/20 05:40 Eos % (Auto) 1.3 % (0.0-4.3) 02/27/20 05:40 Baso % (Auto) 0.3 % (0.0-1.8) 02/27/20 05:40 Lymph # (Auto) 1.1 K/mm3 (1.2-5.4) L 02/27/20 05:40 Evangeline # (Auto) 0.9 K/mm3 (0.0-0.8) H 02/27/20 05:40 Eos # (Auto) 0.1 K/mm3 (0.0-0.4) 02/27/20 05:40 Baso # (Auto) 0.0 K/mm3 (0.0-0.1) 02/27/20 05:40 Seg Neutrophils % 77.2 % (40.0-70.0) H 02/27/20 05:40 Seg Neutrophils # 7.3 K/mm3 (1.8-7.7) 02/27/20 05:40 PT 17.2 Sec. (12.2-14.9) H 02/28/20 08:08 INR 1.39 (0.87-1.13) H 02/28/20 08:08 APTT 52.5 Sec. (24.2-36.6) H 02/26/20 13:34 Sodium 148 mmol/L (137-145) H 02/28/20 08:08 Potassium 4.0 mmol/L (3.6-5.0) 02/28/20 08:08 Chloride 118.3 mmol/L (98-107) H 02/28/20 08:08 Carbon Dioxide 20 mmol/L (22-30) L 02/28/20 08:08 Anion Gap 14 mmol/L 02/28/20 08:08 BUN 31 mg/dL (9-20) H 02/28/20 08:08 Creatinine 0.7 mg/dL (0.8-1.3) L 02/28/20 08:08 Estimated GFR > 60 ml/min 02/28/20 08:08 BUN/Creatinine Ratio 44 % 02/28/20 08:08 Glucose 270 mg/dL (75-100) H 02/28/20 08:08 POC Glucose 185 mg/dL (70-105) H 02/27/20 21:32 Calcium 7.5 mg/dL (8.4-10.2) L 02/28/20 08:08 Magnesium 2.00 mg/dL (1.7-2.3) 02/26/20 13:34 Total Bilirubin 0.20 mg/dL (0.1-1.2) 02/26/20 13:34 AST 27 units/L (5-40) 02/26/20 13:34 ALT < 5 units/L (7-56) L 02/26/20 13:34 Alkaline Phosphatase 97 units/L (35-129) 02/26/20 13:34 Total Creatine Kinase 141 units/L (55-170) 02/26/20 13:34 Total Protein 5.4 g/dL (6.3-8.2) L 02/26/20 13:34 Albumin 1.6 g/dL (3.9-5) L 02/26/20 13:34 Albumin/Globulin Ratio 0.4 % 02/26/20 13:34 TSH 5.440 mlU/mL (0.270-4.200) H 02/26/20 13:34 Urine Color Yellow (Yellow) 02/26/20 03:10 Urine Turbidity Clear (Clear) 02/26/20 03:10 Urine pH 7.0 (5.0-7.0) 02/26/20 03:10 Ur Specific [place] 1.017 (1.003-1.030) 02/26/20 03:10 Urine Protein 30 mg/dl mg/dL (Negative) 02/26/20 03:10 Urine Glucose (UA) 50 mg/dL (Negative) 02/26/20 03:10 Urine Ketones Tr mg/dL (Negative) 02/26/20 03:10 Urine Blood Neg (Negative) 02/26/20 03:10 Urine Nitrite Neg (Negative) 02/26/20 03:10 Urine Bilirubin Neg (Negative) 02/26/20 03:10 Urine Urobilinogen < 2.0 mg/dL (<2.0) 02/26/20 03:10 Ur Leukocyte Esterase Neg (Negative) 02/26/20 03:10 Urine WBC (Auto) 5.0 /HPF (0.0-6.0) 02/26/20 03:10 Urine RBC (Auto) 1.0 /HPF (0.0-6.0) 02/26/20 03:10 U Epithel Cells (Auto) 1.0 /HPF (0-13.0) 02/26/20 03:10 Hyaline Casts 1 /LPF 02/26/20 03:10 Urine Yeast (Budding) Few /HPF 02/26/20 03:10 Blood Type A POSITIVE 02/26/20 13:34 Antibody Screen Negative 02/26/20 13:34 Crossmatch See Detail 02/26/20 13:34 Vazquez/IV: Voiding Method Condom Catheter IV Catheter Type [Left Upper Mid-line arm] IV Catheter Type [Right Hand] Peripheral IV Active Medications - Current Medications Current Medications: Generic Name Dose Route Start Last Admin Trade Name Freq PRN Reason Stop Dose Admin Lipase/Protease/Amylase 1 each 02/27/20 16:00 Pancretong Chery 10,500 Unit FEEDTUBE PRN PRN For Clogged Feeding Tube Clopidogrel Bisulfate 75 mg 02/29/20 10:00 Plavix PO QDAY RADHA Dextrose 50 ml 02/26/20 18:06 D50w (25gm) Syringe IV Q30MIN PRN Hypoglycemia Protocol Fentanyl 25 mcg 02/26/20 19:20 02/27/20 15:01 Sublimaze IV 25 mcg Q4H PRN Administration Pain , Severe (7-10) Sodium Chloride 1,000 mls @ 100 mls/hr 02/27/20 16:00 02/28/20 02:15 Nacl 0.45% 1000 Ml IV 100 mls/hr DIRECT RADHA Administration Insulin Human Lispro 0 unit 02/26/20 19:00 02/28/20 07:00 Humalog SUB-Q Not Given Q6H RAHDA Protocol Lansoprazole 30 mg 02/28/20 10:00 02/28/20 09:42 Prevacid Solutab FEEDTUBE 30 mg QDAY RADHA Administration Multivitamins 5 ml 02/27/20 17:00 02/28/20 09:42 Centrum Liq FEEDTUBE 5 ml QDAY RADHA Administration Simple Syrup 15 ml 02/27/20 16:00 Simple Syrup FEEDTUBE PRN PRN Hypoglycemia Simple Syrup 30 ml 02/27/20 16:00 Simple Syrup FEEDTUBE PRN PRN Hypoglycemia Sodium Bicarbonate 325 mg 02/27/20 16:00 Sodium Bicarbonate FEEDTUBE PRN PRN For Clogged Feeding Tube Sodium Chloride 10 ml 02/26/20 22:00 02/28/20 09:43 Sodium Chloride Flush Syringe 10 Ml IV 10 ml BID RADHA Administration Sodium Chloride 10 ml 02/26/20 14:44 Sodium Chloride Flush Syringe 10 Ml IV PRN PRN LINE FLUSH Nutrition/Malnutrition Assess - Dietary Evaluation Nutrition/Malnutrition Findings: Nutrition Notes Start: 02/27/20 11:10 Freq: Status: Active Protocol: Document 02/27/20 11:51 AL (Rec: 02/27/20 12:09 AL [id number]) Co-Sign 02/27/20 11:51 MK Nutrition Notes 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 Per RN, patient has not been able to eat much of his meals orally. Patient was previously on Glucerna 1.5 at 45 mL/hr for 20 hrs/day at [facility], per chart. Percent of energy/protein needs met: 0%/0% Burn Absent Trauma Absent GI Symptoms None Current % PO Poor (25-49%) Minimum of two criteria No #2 Nutrition Diagnosis Increased nutrient needs ( specify in comment below) Comments: protein Etiology wound healing As Evidenced by Signs and Symptoms multiple pressure ulcers #1 Nutrition Diagnosis Inadequate oral intake Etiology chronic illness As Evidenced by Signs and Symptoms pt has PEG placement, eating < 25% of meals Is patient on ventilator? No Is Patient Ambulatory and/or Out of Bed No REE-([facility]-confined to bed) [phone] Calculation Used for Recommendations [facility] Additional Notes Protein Needs: 87-105 g (1.25- 1.5 g/kg) Fluid Needs: 1 mL/kcal Nutrition Intervention Change Diet Order: Initiate TF via PEG per GI recommendations Nutrition Support: Glucerna 1.2 at 55 mL/hr (goal rate) Flush 85 mL q4h. Kcal 1,584 Protein (gm) 79 Fluid (mL) 1,063 Goal #1 Initiate TF Goal #2 Meet at least 80% of estimated energy and protein needs via TF Anticipated Discharge Needs: Enteral nutrition support Follow-Up By: 03/02/20 Additional Comments F/U for TF start/intakes
[2020-02-28 14:21] LABS: Basophils % (Auto) 0.5 % (0.0-1.8); Eosinophils % (Auto) 0.5 % (0.0-4.3); Hemoglobin 6.1 gm/dl (11.8-15.2); Lymphocytes # (Auto) 0.7 K/mm3 (1.2-5.4); Lymphocytes % (Auto) 8.4 % (13.4-35.0); Mean Corpuscular HGB Conc 33 % (32-34); Mean Corpuscular Volume 88 fl (84-94); Monocytes # (Auto) 0.4 K/mm3 (0.0-0.8); Monocytes % (Auto) 5.6 % (0.0-7.3); Platelet Count 137 K/mm3 (140-440); Red Cell Distribution Width 17.6 % (13.2-15.2)
[2020-02-28 14:30] LABS: Hematocrit 18.4 % (35.5-45.6)
--- NOTE | 2020-02-28 16:16 | Gastroenterology Progress Note ---
Assessment and Plan # GI bleed - Hx of recurrent GI bleed at [place]; EGD (-) x 2; R Hemicolectomy then subtotal colectomy 11/2019 for colonic bleeding - No hematemesis or bleeding around PEG - Patient has been on coumadin x 7 years for portal vein thrombosis, but no recent imaging of PV at [place], and not clear he needs this (does have a hx of severe PAD as well as CHF 40%) - Suspect a small bowel source - s/p EGD on 02/27/2020. No evidence of upper GI bleeding. PEG in place. - recurrent bleeding with new drop in H/H down 6.1 Rec - transfuse with Hgb goal >7. - monitor H/H. - ordered NM bleeding scan. - pending bleeding scan results. will plan for small bowel enteroscopy. - hold anticoagulation. - NPO MN. hold tube feeds at midnight. Subjective Date of service: 02/28/20 Interval history: Per nursing, patient had two black tarry stools today. Hgb down to 6.1 from 8 this morning. Objective - Constitutional Vitals: Temp Pulse Resp BP Pulse Ox 98.1 F 110 H 25 H 131/79 99 02/28/20 12:06 02/28/20 09:00 02/28/20 09:00 02/28/20 09:00 02/28/20 09:00 General appearance: no acute distress - EENT ENT: hearing intact - Respiratory Respiratory effort: normal - Cardiovascular Rhythm: regular Heart Sounds: Present: S1 & S2 - Gastrointestinal General gastrointestinal: Present: soft, non-tender, non-distended - Labs CBC & Chem 7: 02/28/20 14:08 02/28/20 08:08 Labs: Laboratory Results - last 24 hr 02/27/20 02/27/20 02/27/20 12:43 17:51 21:32 WBC RBC Hgb Hct MCV MCH MCHC RDW Plt Count Lymph % (Auto) Bennett % (Auto) Eos % (Auto) Baso % (Auto) Lymph # (Auto) Bennett # (Auto) Eos # (Auto) Baso # (Auto) Seg Neutrophils % Seg Neutrophils # PT INR Sodium Potassium Chloride Carbon Dioxide Anion Gap BUN Creatinine Estimated GFR BUN/Creatinine Ratio Glucose POC Glucose 390 H 267 H 185 H Calcium 11/02/28/20 02/28/20 08:08 08:08 08:08 WBC 8.2 RBC 3.07 L Hgb 8.9 L Hct 27.3 L MCV 89 MCH 29 MCHC 33 RDW 17.9 H Plt Count 195 Lymph % (Auto) Bennett % (Auto) Eos % (Auto) Baso % (Auto) Lymph # (Auto) Bennett # (Auto) Eos # (Auto) Baso # (Auto) Seg Neutrophils % Seg Neutrophils # PT 17.2 H INR 1.39 H Sodium 148 H Potassium 4.0 Chloride 118.3 H Carbon Dioxide 20 L Anion Gap 14 BUN 31 H Creatinine 0.7 L Estimated GFR > 60 BUN/Creatinine Ratio 44 Glucose 270 H POC Glucose Calcium 7.5 L 02/28/20 02/28/20 11:54 14:08 WBC 7.9 RBC 2.10 L Hgb 6.1 L Hct 18.4 L* D MCV 88 MCH 29 MCHC 33 RDW 17.6 H Plt Count 137 L Lymph % (Auto) 8.4 L Bennett % (Auto) 5.6 Eos % (Auto) 0.5 Baso % (Auto) 0.5 Lymph # (Auto) 0.7 L Bennett # (Auto) 0.4 Eos # (Auto) 0.0 Baso # (Auto) 0.0 Seg Neutrophils % 85.0 H Seg Neutrophils # 6.7 PT INR Sodium Potassium Chloride Carbon Dioxide Anion Gap BUN Creatinine Estimated GFR BUN/Creatinine Ratio Glucose POC Glucose 368 H Calcium
[2020-02-28] MEDS ORDERED: SODIUM CHLORIDE 0.9% 500 ML 500 ML IV SCH (16:29)
--- NOTE | 2020-02-28 20:20 | Nuclear Medicine Report ---
NUCLEAR MEDICINE GI BLEED STUDY INDICATION / CLINICAL INFORMATION: GI bleed. TECHNIQUE: 21.8 mCi of [id number]-labeled RBCs were injected IV. Images were obtained of the abdomen were obtained for 60 minutes. COMPARISON: No relevant prior imaging study available. FINDINGS: Normal distribution of activity within the labeled blood pool with visualization of the heart, liver, spleen, and genitourinary tract. Normal vessels are identified. No abnormal focus of activity is identified. IMPRESSION: 1. No evidence of active GI bleeding over 1 hour. Signer Name: Tommy Pete MD Signed: 02/28/2020 8:15 PM Workstation Name: [id number]
[2020-02-28 23:33] LABS: Hematocrit 24.9 % (35.5-45.6)
[2020-02-29] MEDS ORDERED: SODIUM CHLORIDE 0.9% 500 ML 500 ML IV ONE (00:44)
[2020-02-29] MEDS: INSULIN LISPRO 100 UNIT/ML VIAL 3 mL SUB-Q SCH ×3 (01:15→17:01)
[2020-02-29] MEDS: SODIUM CHLORIDE 0.45% 1000 ML 1,000 ML IV SCH (02:33)
[2020-02-29 06:07] LABS: Basophils % (Auto) 0.3 % (0.0-1.8); Eosinophils # (Auto) 0.1 K/mm3 (0.0-0.4); Eosinophils % (Auto) 0.9 % (0.0-4.3); Hematocrit 23.4 % (35.5-45.6); Hemoglobin 7.5 gm/dl (11.8-15.2); Lymphocytes # (Auto) 1.1 K/mm3 (1.2-5.4); Mean Corpuscular HGB Conc 32 % (32-34); Mean Corpuscular Volume 89 fl (84-94); Monocytes # (Auto) 0.8 K/mm3 (0.0-0.8); Monocytes % (Auto) 7.1 % (0.0-7.3); Platelet Count 219 K/mm3 (140-440); Red Blood Count 2.62 M/mm3 (3.65-5.03); Red Cell Distribution Width 17.8 % (13.2-15.2)
[2020-02-29 06:42] LABS: Blood Urea Nitrogen 25 mg/dL (9-20); Calcium 7.5 mg/dL (8.4-10.2); Hemolysis Index 8
[2020-02-29 06:46] LABS: BUN/Creatinine Ratio 36
--- NOTE | 2020-02-29 09:32 | Progress Note ---
Assessment and Plan Assessment and plan: GI bleed Hx of recurrent GI bleed at [place]; EGD (-) x 2; R Hemicolectomy then subtotal colectomy 11/2019 for colonic bleeding Hypernatremia D5 water, CMP, repeat CMP in a.m. Symptomatic anemia Patient has been on coumadin x 7 years for portal vein thrombosis, but no recent imaging of PV at [place], and not clear he needs this (does have a hx of severe PAD as well as CHF 40%) Metabolic encephalopathy Neuro check, seizure precautions, aspiration precautions, fall precautions, supportive care. Chronic systolic heart failure. EF 40%. Compensated Vascular dementia Verbal prompting, verbal redirection, benzodiazepine therapy as clinically indicated, supportive care. Cerebral atherosclerosis Supportive care, risk factor reduction, low-cholesterol diet. Portal vein thrombosis Hold anticoagulation for now due to active GI bleed, supportive care Severe PAD. DVT prophylaxis SCD to bilateral lower extremities while in bed, hold anticoagulation now due to active GI bleed. 02/28/2020. Patient with episode of black tarry stool last night and a second episode this morning. Patient is s/p EGD on 02/27/2020 which revealed no evidence of upper GI bleeding and no varices in the stomach or esophagus. Check serial CBC. GI may need to perform SB enteroscopy. However, GI may consider palliative care discussion. Hold Plavix for today. 02/29/2020. Patient is s/p EGD on 02/27/2020. No evidence of upper GI bleeding. PEG in place. Preliminary nuclear medicine bleeding scan showed no evidence of bleeding over 1 hour. GI considering small bowel enteroscopy. Patient has received a total of 3 units PRBCs since admission. Patient with more episodes of black tarry stools occurring last night as well as this morning per nursing. Recheck CBC later today. History Interval history: No new issues. Patient with episodes of black tarry stools as noted previously yesterday. Patient with more episodes of black tarry stools occurring last night as well as this morning per nursing. Hospitalist Physical - Constitutional Vitals: Temp Pulse Resp BP Pulse Ox 97.6 F 109 H 22 139/79 98 02/29/20 04:00 02/29/20 07:01 02/29/20 07:01 02/29/20 07:01 02/29/20 07:01 General appearance: Present: mild distress - EENT Eyes: Present: PERRL, EOM intact ENT: hearing intact, clear oral mucosa, dentition normal - Neck Neck: Present: supple, normal ROM - Respiratory Respiratory effort: normal Respiratory: bilateral: CTA - Cardiovascular Rhythm: regular Heart Sounds: Present: S1 & S2. Absent: gallop, rub - Extremities Extremities: no ischemia, No edema, Full ROM - Abdominal General gastrointestinal: soft, non-tender, non-distended, normal bowel sounds - Integumentary Integumentary: Present: clear, warm, dry - Neurologic Neurologic: CNII-XII intact, moves all extremities Results - Labs CBC & Chem 7: 02/29/20 05:13 02/29/20 05:13 Labs: Laboratory Last Values WBC 11.2 K/mm3 (4.5-11.0) H 02/29/20 05:13 RBC 2.62 M/mm3 (3.65-5.03) L 02/29/20 05:13 Hgb 7.5 gm/dl (11.8-15.2) L 02/29/20 05:13 Hct 23.4 % (35.5-45.6) L 02/29/20 05:13 MCV 89 fl (84-94) 02/29/20 05:13 MCH 29 pg (28-32) 02/29/20 05:13 MCHC 32 % (32-34) 02/29/20 05:13 RDW 17.8 % (13.2-15.2) H 02/29/20 05:13 Plt Count 219 K/mm3 (140-440) 02/29/20 05:13 Lymph % (Auto) 10.0 % (13.4-35.0) L 02/29/20 05:13 [place] % (Auto) 7.1 % (0.0-7.3) 02/29/20 05:13 Eos % (Auto) 0.9 % (0.0-4.3) 02/29/20 05:13 Baso % (Auto) 0.3 % (0.0-1.8) 02/29/20 05:13 Lymph # (Auto) 1.1 K/mm3 (1.2-5.4) L 02/29/20 05:13 [place] # (Auto) 0.8 K/mm3 (0.0-0.8) 02/29/20 05:13 Eos # (Auto) 0.1 K/mm3 (0.0-0.4) 02/29/20 05:13 Baso # (Auto) 0.0 K/mm3 (0.0-0.1) 02/29/20 05:13 Seg Neutrophils % 81.7 % (40.0-70.0) H 02/29/20 05:13 Seg Neutrophils # 9.2 K/mm3 (1.8-7.7) H 02/29/20 05:13 PT 17.2 Sec. (12.2-14.9) H 02/28/20 08:08 INR 1.39 (0.87-1.13) H 02/28/20 08:08 APTT 52.5 Sec. (24.2-36.6) H 02/26/20 13:34 Sodium 148 mmol/L (137-145) H 02/29/20 05:13 Potassium 3.6 mmol/L (3.6-5.0) 02/29/20 05:13 Chloride 118.1 mmol/L (98-107) H 02/29/20 05:13 Carbon Dioxide 22 mmol/L (22-30) 02/29/20 05:13 Anion Gap 12 mmol/L 02/29/20 05:13 BUN 25 mg/dL (9-20) H 02/29/20 05:13 Creatinine 0.7 mg/dL (0.8-1.3) L 02/29/20 05:13 Estimated GFR > 60 ml/min 02/29/20 05:13 BUN/Creatinine Ratio 36 % 02/29/20 05:13 Glucose 200 mg/dL (75-100) H 02/29/20 05:13 POC Glucose 208 mg/dL (70-105) H 02/29/20 05:40 Calcium 7.5 mg/dL (8.4-10.2) L 02/29/20 05:13 Magnesium 2.00 mg/dL (1.7-2.3) 02/26/20 13:34 Total Bilirubin 0.20 mg/dL (0.1-1.2) 02/26/20 13:34 AST 27 units/L (5-40) 02/26/20 13:34 ALT < 5 units/L (7-56) L 02/26/20 13:34 Alkaline Phosphatase 97 units/L (35-129) 02/26/20 13:34 Total Creatine Kinase 141 units/L (55-170) 02/26/20 13:34 Total Protein 5.4 g/dL (6.3-8.2) L 02/26/20 13:34 Albumin 1.6 g/dL (3.9-5) L 02/26/20 13:34 Albumin/Globulin Ratio 0.4 % 02/26/20 13:34 TSH 5.440 mlU/mL (0.270-4.200) H 02/26/20 13:34 Urine Color Yellow (Yellow) 02/26/20 03:10 Urine Turbidity Clear (Clear) 02/26/20 03:10 Urine pH 7.0 (5.0-7.0) 02/26/20 03:10 Ur Specific [place] 1.017 (1.003-1.030) 02/26/20 03:10 Urine Protein 30 mg/dl mg/dL (Negative) 02/26/20 03:10 Urine Glucose (UA) 50 mg/dL (Negative) 02/26/20 03:10 Urine Ketones Tr mg/dL (Negative) 02/26/20 03:10 Urine Blood Neg (Negative) 02/26/20 03:10 Urine Nitrite Neg (Negative) 02/26/20 03:10 Urine Bilirubin Neg (Negative) 02/26/20 03:10 Urine Urobilinogen < 2.0 mg/dL (<2.0) 02/26/20 03:10 Ur Leukocyte Esterase Neg (Negative) 02/26/20 03:10 Urine WBC (Auto) 5.0 /HPF (0.0-6.0) 02/26/20 03:10 Urine RBC (Auto) 1.0 /HPF (0.0-6.0) 02/26/20 03:10 U Epithel Cells (Auto) 1.0 /HPF (0-13.0) 02/26/20 03:10 Hyaline Casts 1 /LPF 02/26/20 03:10 Urine Yeast (Budding) Few /HPF 02/26/20 03:10 Blood Type A POSITIVE 02/29/20 00:55 Antibody Screen Negative 02/29/20 00:55 Crossmatch See Detail 02/29/20 00:55 Vazquez/IV: Voiding Method Condom Catheter IV Catheter Type [Left Upper Mid-line arm] IV Catheter Type [Right Hand] Peripheral IV Active Medications - Current Medications Current Medications: Generic Name Dose Route Start Last Admin Trade Name Freq PRN Reason Stop Dose Admin Lipase/Protease/Amylase 1 each 02/27/20 16:00 Janice Chery 10,500 Unit FEEDTUBE PRN PRN For Clogged Feeding Tube Dextrose 50 ml 02/26/20 18:06 D50w (25gm) Syringe IV Q30MIN PRN Hypoglycemia Protocol Fentanyl 25 mcg 02/26/20 19:20 02/27/20 15:01 Sublimaze IV 25 mcg Q4H PRN Administration Pain , Severe (7-10) Sodium Chloride 1,000 mls @ 100 mls/hr 02/27/20 16:00 02/29/20 02:33 Nacl 0.45% 1000 Ml IV 100 mls/hr DIRECT RADHA Administration Sodium Chloride 500 mls @ 0 mls/hr 02/28/20 16:29 Nacl 0.9% 500 Ml IV 02/29/20 16:28 ONCE RADHA As Directed Insulin Human Lispro 0 unit 02/26/20 19:00 02/29/20 01:15 Humalog SUB-Q 6 unit Q6H RADHA Administration Protocol Lansoprazole 30 mg 02/28/20 10:00 02/28/20 09:42 Prevacid Solutab FEEDTUBE 30 mg QDAY RADHA Administration Multivitamins 5 ml 02/27/20 17:00 02/28/20 16:23 Centrum Liq FEEDTUBE 5 ml QDAY RADHA Administration Simple Syrup 15 ml 02/27/20 16:00 Simple Syrup FEEDTUBE PRN PRN Hypoglycemia Simple Syrup 30 ml 02/27/20 16:00 Simple Syrup FEEDTUBE PRN PRN Hypoglycemia Sodium Bicarbonate 325 mg 02/27/20 16:00 Sodium Bicarbonate FEEDTUBE PRN PRN For Clogged Feeding Tube Sodium Chloride 10 ml 02/26/20 22:00 02/29/20 00:29 Sodium Chloride Flush Syringe 10 Ml IV 10 ml BID RADHA Administration Sodium Chloride 10 ml 02/26/20 14:44 Sodium Chloride Flush Syringe 10 Ml IV PRN PRN LINE FLUSH Nutrition/Malnutrition Assess - Dietary Evaluation Nutrition/Malnutrition Findings: Nutrition Notes Start: 02/27/20 11:10 Freq: Status: Active Protocol: Document 02/27/20 11:51 AL (Rec: 02/27/20 12:09 AL [id number]) Co-Sign 02/27/20 11:51 MK Nutrition Notes Need for Assessment 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 Per RN, patient has not been able to eat much of his meals orally. Patient was previously on Glucerna 1.5 at 45 mL/hr for 20 hrs/day at [facility], per chart. Percent of energy/protein needs met: 0%/0% Burn Absent Trauma Absent GI Symptoms None Current % PO Poor (25-49%) Minimum of two criteria No #2 Nutrition Diagnosis Increased nutrient needs ( specify in comment below) Comments: protein Etiology wound healing As Evidenced by Signs and Symptoms multiple pressure ulcers #1 Nutrition Diagnosis Inadequate oral intake Etiology chronic illness As Evidenced by Signs and Symptoms pt has PEG placement, eating < 25% of meals Is patient on ventilator? No Is Patient Ambulatory and/or Out of Bed No REE-([facility]-confined to bed) 1563.216 Calculation Used for Recommendations [facility] Additional Notes Protein Needs: 87-105 g (1.25- 1.5 g/kg) Fluid Needs: 1 mL/kcal Nutrition Intervention Change Diet Order: Initiate TF via PEG per GI recommendations Nutrition Support: Glucerna 1.2 at 55 mL/hr (goal rate) Flush 85 mL q4h. Kcal 1,584 Protein (gm) 79 Fluid (mL) 1,063 Goal #1 Initiate TF Goal #2 Meet at least 80% of estimated energy and protein needs via TF Anticipated Discharge Needs: Enteral nutrition support Follow-Up By: 03/02/20 Additional Comments F/U for TF start/intakes
[2020-02-29] MEDS: MULTIVITAMINS 5 ML ORAL LIQUID FEEDTUBE SCH (09:48)
[2020-02-29] MEDS: LANSOPRAZOLE 30 MG SOLUTAB FEEDTUBE SCH (09:49)
[2020-02-29] MEDS ORDERED: CLOPIDOGREL 75 MG TAB PO SCH (10:00)
--- NOTE | 2020-02-29 14:59 | Gastroenterology Progress Note ---
Assessment and Plan # GI bleed - Hx of recurrent GI bleed at [facility] [facility]; EGD (-) x 2; R Hemicolectomy then subtotal colectomy 11/2019 for colonic bleeding - No hematemesis or bleeding around PEG - Patient has been on coumadin x 7 years for portal vein thrombosis, but no recent imaging of PV at [place], and not clear he needs this (does have a hx of severe PAD as well as CHF 40%) - Suspect a small bowel source - s/p EGD on 02/27/2020. No evidence of upper GI bleeding. PEG in place. - drop H/H on 02/28/2020 and received blood transfusion. - NM bleeding scan without any active bleeding signs. - brown stool on rectal exam this PM. Brown stool this morning per nursing. Rec - transfuse with Hgb goal >7. - monitor H/H. Repeat CBC this afternoon. - tentatively plan for enteroscopy tomorrow. Miralax via PEG tube. NPO MN. - hold anticoagulation. - will follow. - updated on the phone. Subjective Date of service: 02/29/20 Interval history: Patient received blood transfusion yesterday. Per nursing today, brown stool. No abdominal pain. Objective - Constitutional Vitals: Temp Pulse Resp BP Pulse Ox 98.3 F 114 H 25 H 150/79 100 02/29/20 12:00 02/29/20 13:01 02/29/20 13:01 02/29/20 13:01 02/29/20 13:01 General appearance: no acute distress - EENT ENT: hearing intact - Neck Neck: supple - Respiratory Respiratory effort: normal - Cardiovascular Rhythm: regular Heart Sounds: Present: S1 & S2 - Gastrointestinal General gastrointestinal: Present: soft, non-tender, non-distended - Integumentary Integumentary: Present: clear, warm - Labs CBC & Chem 7: 02/29/20 15:08 02/29/20 05:13 Labs: Laboratory Results - last 24 hr 02/26/20 02/28/20 02/28/20 13:34 17:35 22:56 WBC RBC Hgb 8.0 L Hct 24.9 L D MCV MCH MCHC RDW Plt Count Lymph % (Auto) [place] % (Auto) Eos % (Auto) Baso % (Auto) Lymph # (Auto) [place] # (Auto) Eos # (Auto) Baso # (Auto) Seg Neutrophils % Seg Neutrophils # Sodium Potassium Chloride Carbon Dioxide Anion Gap BUN Creatinine Estimated GFR BUN/Creatinine Ratio Glucose POC Glucose 364 H Calcium Blood Type A POSITIVE Antibody Screen Negative Crossmatch See Detail 02/29/20 02/29/20 02/29/20 00:50 00:55 05:13 WBC 11.2 H RBC 2.62 L Hgb 7.5 L Hct 23.4 L MCV 89 MCH 29 MCHC 32 RDW 17.8 H Plt Count 219 Lymph % (Auto) 10.0 L [place] % (Auto) 7.1 Eos % (Auto) 0.9 Baso % (Auto) 0.3 Lymph # (Auto) 1.1 L [place] # (Auto) 0.8 Eos # (Auto) 0.1 Baso # (Auto) 0.0 Seg Neutrophils % 81.7 H Seg Neutrophils # 9.2 H Sodium Potassium Chloride Carbon Dioxide Anion Gap BUN Creatinine Estimated GFR BUN/Creatinine Ratio Glucose POC Glucose 332 H Calcium Blood Type A POSITIVE Antibody Screen Negative Crossmatch See Detail 02/29/20 02/29/20 05:13 05:40 WBC RBC Hgb Hct MCV MCH MCHC RDW Plt Count Lymph % (Auto) [place] % (Auto) Eos % (Auto) Baso % (Auto) Lymph # (Auto) [place] # (Auto) Eos # (Auto) Baso # (Auto) Seg Neutrophils % Seg Neutrophils # Sodium 148 H Potassium 3.6 Chloride 118.1 H Carbon Dioxide 22 Anion Gap 12 BUN 25 H Creatinine 0.7 L Estimated GFR > 60 BUN/Creatinine Ratio 36 Glucose 200 H POC Glucose 208 H Calcium 7.5 L Blood Type Antibody Screen Crossmatch
[2020-02-29 15:31] LABS: Hematocrit 21.1 % (35.5-45.6); Mean Corpuscular HGB Conc 33 % (32-34); Mean Corpuscular Volume 90 fl (84-94); Red Blood Count 2.35 M/mm3 (3.65-5.03); Red Cell Distribution Width 17.7 % (13.2-15.2)
[2020-02-29 15:34] LABS: Platelet Count 169 K/mm3 (140-440)
[2020-02-29 16:27] LABS: Total Cells Counted 100
[2020-02-29 16:28] LABS: Platelet Clumps Few; RBC Morphology Normal
[2020-02-29] MEDS ORDERED: POLYETHYLENE GLYCOL 3350 17 GM POWDER PO ONE (18:00)
[2020-03-01] MEDS: INSULIN LISPRO 100 UNIT/ML VIAL 3 mL SUB-Q SCH ×6 (00:26→18:06)
[2020-03-01 00:54] LABS: Hematocrit 22.4 % (35.5-45.6); Hemoglobin 7.3 gm/dl (11.8-15.2)
[2020-03-01] MEDS ORDERED: MAGNESIUM CITRATE 300 ML ORAL LIQD PO ONE (06:00)
[2020-03-01 06:21] LABS: Basophils % (Auto) 0.3 % (0.0-1.8); Eosinophils # (Auto) 0.1 K/mm3 (0.0-0.4); Hematocrit 22.6 % (35.5-45.6); Hemoglobin 7.3 gm/dl (11.8-15.2); Lymphocytes # (Auto) 0.9 K/mm3 (1.2-5.4); Lymphocytes % (Auto) 9.2 % (13.4-35.0); Mean Corpuscular HGB Conc 32 % (32-34); Mean Corpuscular Volume 91 fl (84-94); Monocytes # (Auto) 0.6 K/mm3 (0.0-0.8); Monocytes % (Auto) 5.7 % (0.0-7.3); Platelet Count 213 K/mm3 (140-440); Red Blood Count 2.47 M/mm3 (3.65-5.03); Red Cell Distribution Width 18.9 % (13.2-15.2)
[2020-03-01] MEDS: SODIUM CHLORIDE 0.45% 1000 ML 1,000 ML IV SCH (06:47)
[2020-03-01] MEDS ORDERED: WATER FOR IRRIG STERILE 1,000 ML BOTTLE ONE (07:53)
[2020-03-01] MEDS ORDERED: SODIUM CHLORIDE 0.9% 1000 ML 1,000 ML ONE (07:53)
[2020-03-01] MEDS ORDERED: WATER FOR IRRIG STERILE 250 ML BOTTLE IR ONE (07:53)
[2020-03-01] MEDS ORDERED: EPINEPHrine 1 MG/10 ML SYRINGE ONE (07:54)
--- NOTE | 2020-03-01 08:16 | Anesthesia Day of Surgery ---
Anesthesia Day of Surgery - Day of Surgery Patient Examined: Yes Patient H&P Reviewed: Yes Patient is NPO: Yes
[2020-03-01] MEDS ORDERED: propofoL 200 MG/20 ML VIAL IV ONE ×2 (08:35)
[2020-03-01] MEDS ORDERED: LIDOCAINE MPF (2%) 20 MG/1 ML VIAL 5 ML ONE (08:35)
--- NOTE | 2020-03-01 09:26 | Operative Report ---
Operative Report Operative Report: Push enteroscopy Date:02/28/2020 Pre procedure diagnosis:Melena, GI bleed Post procedure diagnosis:PEG present in the body of stomach (balloon type), Irregular z-line Procedure: Push enteroscopy Endoscopist: Osmar Padilla MD Medications:MAC Complications:none Estimated blood loss: None After careful discussion of the nature and purpose of the procedure, details of the technique, risks, benefits and alternatives, the patient gave consent. The patient was placed in the left lateral decubitus position and medicated by anesthesia- see separate records for details. The tip of the olympus video pediatric colonoscope was passed per orum under direct view through the mouth and into the esophagus, stomach and duodenum. The scope was advanced to the mid jejunum without difficulty. The part of the jejunum and duodenum examined appeared normal without any signs of bleeding. Tattoo with endomarker was injected to shahrzad the farthest point reached in jejunum. The scope was withdrawn back into the stomach and the stomach gently insufflated with air. The antrum appeared normal. There was PEG tube with internal balloon seen in the distal gastric body. The scope was then retroflexed and partially withdrawn to inspect the proximal stomach. The cardia, fundus and body revealed normal findings. The scope was then withdrawn in the forward view. The EG junction was at 40 cm with irregular z-line.Theesophagus was normal. The procedure was well tolerated and the patient was observed. IMPRESSION: 1. No evidence of upper GI bleeding 2. PEG present in the body of stomach (balloon type) 3. Irregular z-line 4. Tattoo injected at the furthest point in jejunum reached. Plan: 1. Continue with PPI. 2. Monitor H/H serially and transfuse with Hgb goal<7. 3. Proceed with ileoscopy 4. Avoid NSAIDs. Osmar Saleh (Alden Padilla MD [facility]
--- NOTE | 2020-03-01 09:29 | Operative Report ---
Operative Report Operative Report: Procedure: Enteroscopy Endoscopist: Osmar Padilla MD Pre-operative Diagnosis/Indications:GI bleed Post-operative Diagnosis:post surgical changes, fair prep History:See consult note Sedation:MAC Procedure Details: Indications, risks, and benefits were explained and consent was obtained. Pt was placed in the left lateral decubitus position and sedated. Video colonoscope was inserted thru the anus after digital exam, and advanced to the ileum withoutdifficulty. Scope was then gradually withdrawn with close inspection of the mucosa. Prep was fair. Findings: 1. Post surgical changes were seen in the rectum with ileo-colonic anastomosis. 2. A few small diverticula in the ileum. 3. No signs of GI bleeding without blood, clots, or AVMs. 4. Tattoo with endomarker injected at the most proximal point reached in the ileum. Specimens:none Complications:None; patient tolerated the procedure well. Disposition:Recover in GI unit and transfer to the floor. Impression: 1. Fair prep quality. 2. Ileo-colonic anastomosis in the rectum. 3. No signs of GI bleeding source noted in the examined part of ileum. Tattoo at the most proximal point reached. Recommendations: 1. Resume tube feeds. 2. Monitor H/H. 3. In case of recurrent active bleeding, recommend bleeding scan vs CTA. Osmar Padilla MD (Jenny) [facility]
[2020-03-01] MEDS: LANSOPRAZOLE 30 MG SOLUTAB FEEDTUBE SCH (09:41)
[2020-03-01] MEDS: MULTIVITAMINS 5 ML ORAL LIQUID FEEDTUBE SCH (09:41)
--- NOTE | 2020-03-01 12:08 | Progress Note ---
Assessment and Plan Assessment and plan: GI bleed Hx of recurrent GI bleed at [place] [facility]; EGD (-) x 2; R Hemicolectomy then subtotal colectomy 11/2019 for colonic bleeding Hypernatremia D5 water, CMP, repeat CMP in a.m. Symptomatic anemia Patient has been on coumadin x 7 years for portal vein thrombosis, but no recent imaging of PV at [place], and not clear he needs this (does have a hx of severe PAD as well as CHF 40%) Metabolic encephalopathy Neuro check, seizure precautions, aspiration precautions, fall precautions, supportive care. Chronic systolic heart failure. EF 40%. Compensated Vascular dementia Verbal prompting, verbal redirection, benzodiazepine therapy as clinically indicated, supportive care. Cerebral atherosclerosis Supportive care, risk factor reduction, low-cholesterol diet. Portal vein thrombosis Hold anticoagulation for now due to active GI bleed, supportive care Severe PAD. DVT prophylaxis SCD to bilateral lower extremities while in bed, hold anticoagulation now due to active GI bleed. 02/28/2020. Patient with episode of black tarry stool last night and a second episode this morning. Patient is s/p EGD on 02/27/2020 which revealed no evidence of upper GI bleeding and no varices in the stomach or esophagus. Check serial CBC. GI may need to perform SB enteroscopy. However, GI may consider palliative care discussion. Hold Plavix for today. 02/29/2020. Patient is s/p EGD on 02/27/2020. No evidence of upper GI bleeding. PEG in place. Preliminary nuclear medicine bleeding scan showed no evidence of bleeding over 1 hour. GI considering small bowel enteroscopy. Patient has received a total of 3 units PRBCs since admission. Patient with more episodes of black tarry stools occurring last night as well as this morning per nursing. Recheck CBC later today. 03/01/2020. Enteroscopy/ileoscopy completed by GI which revealed postsurgical changes in the rectum and ileocolonic anastomosis with few small diverticula in the ileum. No evidence of upper GI bleeding. Continue PPI and monitor H&H serially. Transfuse as needed. History Interval history: No new issues. Patient with enteroscopy and colonoscopy this a.m. Hospitalist Physical - Constitutional Vitals: Temp Pulse Resp BP Pulse Ox 98.7 F 108 H 23 160/81 95 03/01/20 08:40 03/01/20 11:00 03/01/20 11:00 03/01/20 11:00 03/01/20 11:00 General appearance: Present: mild distress - EENT Eyes: Present: PERRL, EOM intact ENT: hearing intact, clear oral mucosa, dentition normal - Neck Neck: Present: supple, normal ROM - Respiratory Respiratory effort: normal Respiratory: bilateral: CTA - Cardiovascular Rhythm: regular Heart Sounds: Present: S1 & S2. Absent: gallop, rub - Extremities Extremities: no ischemia, No edema, Full ROM - Abdominal General gastrointestinal: soft, non-tender, non-distended, normal bowel sounds - Integumentary Integumentary: Present: clear, warm, dry - Neurologic Neurologic: CNII-XII intact, moves all extremities Results - Labs CBC & Chem 7: 03/01/20 05:18 02/29/20 05:13 Labs: Laboratory Last Values WBC 9.7 K/mm3 (4.5-11.0) 03/01/20 05:18 RBC 2.47 M/mm3 (3.65-5.03) L 03/01/20 05:18 Hgb 7.3 gm/dl (11.8-15.2) L 03/01/20 05:18 Hct 22.6 % (35.5-45.6) L 03/01/20 05:18 MCV 91 fl (84-94) 03/01/20 05:18 MCH 29 pg (28-32) 03/01/20 05:18 MCHC 32 % (32-34) 03/01/20 05:18 RDW 18.9 % (13.2-15.2) H 03/01/20 05:18 Plt Count 213 K/mm3 (140-440) 03/01/20 05:18 Lymph % (Auto) 9.2 % (13.4-35.0) L 03/01/20 05:18 [place] % (Auto) 5.7 % (0.0-7.3) 03/01/20 05:18 Eos % (Auto) 1.0 % (0.0-4.3) 03/01/20 05:18 Baso % (Auto) 0.3 % (0.0-1.8) 03/01/20 05:18 Lymph # (Auto) 0.9 K/mm3 (1.2-5.4) L 03/01/20 05:18 [place] # (Auto) 0.6 K/mm3 (0.0-0.8) 03/01/20 05:18 Eos # (Auto) 0.1 K/mm3 (0.0-0.4) 03/01/20 05:18 Baso # (Auto) 0.0 K/mm3 (0.0-0.1) 03/01/20 05:18 Add Manual Diff Complete 02/29/20 15:08 Total Counted 100 02/29/20 15:08 Seg Neutrophils % 83.8 % (40.0-70.0) H 03/01/20 05:18 Seg Neuts % (Manual) 86.0 % (40.0-70.0) H 02/29/20 15:08 Band Neutrophils % 0 % 02/29/20 15:08 Lymphocytes % (Manual) 7.0 % (13.4-35.0) L 02/29/20 15:08 Reactive Lymphs % (Man) 0 % 02/29/20 15:08 Monocytes % (Manual) 3.0 % (0.0-7.3) 02/29/20 15:08 Eosinophils % (Manual) 2.0 % (0.0-4.3) 02/29/20 15:08 Basophils % (Manual) 2.0 % (0.0-1.8) H 02/29/20 15:08 Metamyelocytes % 0 % 02/29/20 15:08 Myelocytes % 0 % 02/29/20 15:08 Promyelocytes % 0 % 02/29/20 15:08 Blast Cells % 0 % 02/29/20 15:08 Nucleated RBC % Not Reportable 02/29/20 15:08 Seg Neutrophils # 8.1 K/mm3 (1.8-7.7) H 03/01/20 05:18 Seg Neutrophils # Man 10.1 K/mm3 (1.8-7.7) H 02/29/20 15:08 Band Neutrophils # 0.0 K/mm3 02/29/20 15:08 Lymphocytes # (Manual) 0.8 K/mm3 (1.2-5.4) L 02/29/20 15:08 Abs React Lymphs (Man) 0.0 K/mm3 02/29/20 15:08 Monocytes # (Manual) 0.4 K/mm3 (0.0-0.8) 02/29/20 15:08 Eosinophils # (Manual) 0.2 K/mm3 (0.0-0.4) 02/29/20 15:08 Basophils # (Manual) 0.2 K/mm3 (0.0-0.1) H 02/29/20 15:08 Metamyelocytes # 0.0 K/mm3 02/29/20 15:08 Myelocytes # 0.0 K/mm3 02/29/20 15:08 Promyelocytes # 0.0 K/mm3 02/29/20 15:08 Blast Cells # 0.0 K/mm3 02/29/20 15:08 WBC Morphology Not Reportable 02/29/20 15:08 Hypersegmented Neuts Not Reportable 02/29/20 15:08 Hyposegmented Neuts Not Reportable 02/29/20 15:08 Hypogranular Neuts Not Reportable 02/29/20 15:08 Smudge Cells Not Reportable 02/29/20 15:08 Toxic Granulation Not Reportable 02/29/20 15:08 Toxic Vacuolation Not Reportable 02/29/20 15:08 Dohle Bodies Not Reportable 02/29/20 15:08 Pelger-Huet Anomaly Not Reportable 02/29/20 15:08 Pj Rods Not Reportable 02/29/20 15:08 Platelet Estimate Not Reportable 02/29/20 15:08 Clumped Platelets Few 02/29/20 15:08 Plt Clumps, EDTA Not Reportable 02/29/20 15:08 Large Platelets Not Reportable 02/29/20 15:08 Giant Platelets Not Reportable 02/29/20 15:08 Platelet Satelliting Not Reportable 02/29/20 15:08 Plt Morphology Comment Not Reportable 02/29/20 15:08 RBC Morphology Normal 02/29/20 15:08 Dimorphic RBCs Not Reportable 02/29/20 15:08 Polychromasia Not Reportable 02/29/20 15:08 Hypochromasia Not Reportable 02/29/20 15:08 Poikilocytosis Not Reportable 02/29/20 15:08 Anisocytosis Not Reportable 02/29/20 15:08 Microcytosis Not Reportable 02/29/20 15:08 Macrocytosis Not Reportable 02/29/20 15:08 Spherocytes Not Reportable 02/29/20 15:08 Pappenheimer Bodies Not Reportable 02/29/20 15:08 Sickle Cells Not Reportable 02/29/20 15:08 Target Cells Not Reportable 02/29/20 15:08 Tear Drop Cells Not Reportable 02/29/20 15:08 Ovalocytes Not Reportable 02/29/20 15:08 Helmet Cells Not Reportable 02/29/20 15:08 Mak-[place] Bodies Not Reportable 02/29/20 15:08 Loyal Rings Not Reportable 02/29/20 15:08 [place] Cells Not Reportable 02/29/20 15:08 Bite Cells Not Reportable 02/29/20 15:08 Crenated Cell Not Reportable 02/29/20 15:08 Elliptocytes Not Reportable 02/29/20 15:08 Acanthocytes (Spur) Not Reportable 02/29/20 15:08 Rouleaux Not Reportable 02/29/20 15:08 Hemoglobin C Crystals Not Reportable 02/29/20 15:08 Schistocytes Not Reportable 02/29/20 15:08 Malaria parasites Not Reportable 02/29/20 15:08 Rambo Bodies Not Reportable 02/29/20 15:08 Hem Pathologist Commnt No 02/29/20 15:08 PT 17.2 Sec. (12.2-14.9) H 02/28/20 08:08 INR 1.39 (0.87-1.13) H 02/28/20 08:08 APTT 52.5 Sec. (24.2-36.6) H 02/26/20 13:34 Sodium 148 mmol/L (137-145) H 02/29/20 05:13 Potassium 3.6 mmol/L (3.6-5.0) 02/29/20 05:13 Chloride 118.1 mmol/L (98-107) H 02/29/20 05:13 Carbon Dioxide 22 mmol/L (22-30) 02/29/20 05:13 Anion Gap 12 mmol/L 02/29/20 05:13 BUN 25 mg/dL (9-20) H 02/29/20 05:13 Creatinine 0.7 mg/dL (0.8-1.3) L 02/29/20 05:13 Estimated GFR > 60 ml/min 02/29/20 05:13 BUN/Creatinine Ratio 36 % 02/29/20 05:13 Glucose 200 mg/dL (75-100) H 02/29/20 05:13 POC Glucose 216 mg/dL (70-105) H 03/01/20 06:10 Calcium 7.5 mg/dL (8.4-10.2) L 02/29/20 05:13 Magnesium 2.00 mg/dL (1.7-2.3) 02/26/20 13:34 Total Bilirubin 0.20 mg/dL (0.1-1.2) 02/26/20 13:34 AST 27 units/L (5-40) 02/26/20 13:34 ALT < 5 units/L (7-56) L 02/26/20 13:34 Alkaline Phosphatase 97 units/L (35-129) 02/26/20 13:34 Total Creatine Kinase 141 units/L (55-170) 02/26/20 13:34 Total Protein 5.4 g/dL (6.3-8.2) L 02/26/20 13:34 Albumin 1.6 g/dL (3.9-5) L 02/26/20 13:34 Albumin/Globulin Ratio 0.4 % 02/26/20 13:34 TSH 5.440 mlU/mL (0.270-4.200) H 02/26/20 13:34 Urine Color Yellow (Yellow) 02/26/20 03:10 Urine Turbidity Clear (Clear) 02/26/20 03:10 Urine pH 7.0 (5.0-7.0) 02/26/20 03:10 Ur Specific [place] 1.017 (1.003-1.030) 02/26/20 03:10 Urine Protein 30 mg/dl mg/dL (Negative) 02/26/20 03:10 Urine Glucose (UA) 50 mg/dL (Negative) 02/26/20 03:10 Urine Ketones Tr mg/dL (Negative) 02/26/20 03:10 Urine Blood Neg (Negative) 02/26/20 03:10 Urine Nitrite Neg (Negative) 02/26/20 03:10 Urine Bilirubin Neg (Negative) 02/26/20 03:10 Urine Urobilinogen < 2.0 mg/dL (<2.0) 02/26/20 03:10 Ur Leukocyte Esterase Neg (Negative) 02/26/20 03:10 Urine WBC (Auto) 5.0 /HPF (0.0-6.0) 02/26/20 03:10 Urine RBC (Auto) 1.0 /HPF (0.0-6.0) 02/26/20 03:10 U Epithel Cells (Auto) 1.0 /HPF (0-13.0) 02/26/20 03:10 Hyaline Casts 1 /LPF 02/26/20 03:10 Urine Yeast (Budding) Few /HPF 02/26/20 03:10 Blood Type A POSITIVE 02/29/20 00:55 Antibody Screen Negative 02/29/20 00:55 Crossmatch See Detail 02/29/20 00:55 Microbiology: Microbiology 02/27/20 06:00 Nares - Left MRSA Culture - Final 02/27/20 03:25 Urine,Clean Catch Urine Culture - Preliminary NO GROWTH AFTER 24 HOURS Vazquez/IV: Voiding Method Condom Catheter IV Catheter Type [Left Upper Mid-line arm] IV Catheter Type [Right Hand] Peripheral IV Active Medications - Current Medications Current Medications: Generic Name Dose Route Start Last Admin Trade Name Freq PRN Reason Stop Dose Admin Lipase/Protease/Amylase 1 each 02/27/20 16:00 Pancretong Chery 10,500 Unit FEEDTUBE PRN PRN For Clogged Feeding Tube Dextrose 50 ml 02/26/20 18:06 D50w (25gm) Syringe IV Q30MIN PRN Hypoglycemia Protocol Fentanyl 25 mcg 02/26/20 19:20 02/27/20 15:01 Sublimaze IV 25 mcg Q4H PRN Administration Pain , Severe (7-10) Sodium Chloride 1,000 mls @ 50 mls/hr 03/01/20 07:45 Nacl 0.9% 1000 Ml IV DIRECT RADHA Insulin Human Lispro 0 unit 02/26/20 19:00 03/01/20 07:40 Humalog SUB-Q Not Given Q6H RADHA Protocol Lansoprazole 30 mg 02/28/20 10:00 03/01/20 09:41 Prevacid Solutab FEEDTUBE 30 mg QDAY RADHA Administration Multivitamins 5 ml 02/27/20 17:00 03/01/20 09:41 Centrum Liq FEEDTUBE 5 ml QDAY RADHA Administration Simple Syrup 15 ml 02/27/20 16:00 Simple Syrup FEEDTUBE PRN PRN Hypoglycemia Simple Syrup 30 ml 02/27/20 16:00 Simple Syrup FEEDTUBE PRN PRN Hypoglycemia Sodium Bicarbonate 325 mg 02/27/20 16:00 Sodium Bicarbonate FEEDTUBE PRN PRN For Clogged Feeding Tube Sodium Chloride 10 ml 02/26/20 22:00 03/01/20 09:41 Sodium Chloride Flush Syringe 10 Ml IV 10 ml BID RADHA Administration Sodium Chloride 10 ml 02/26/20 14:44 Sodium Chloride Flush Syringe 10 Ml IV PRN PRN LINE FLUSH Nutrition/Malnutrition Assess - Dietary Evaluation Nutrition/Malnutrition Findings: Nutrition Notes Start: 02/27/20 11:10 Freq: Status: Active Protocol: Document 02/27/20 11:51 AL (Rec: 02/27/20 12:09 AL [id number]) Co-Sign 02/27/20 11:51 MK Nutrition Notes Need for Assessment generated from: MD Order,group burner machine,MST Initial or Follow up Assessment Current Diagnosis Heart Failure Other Pertinent Diagnosis vascular dementia, GI bleed, hyponatremia, gout, multiple wounds Current Diet Cardiac/Consistent CHO Labs/Tests Na 154 BUN 43 BG 302 Pertinent Medications Humalog NS 50 mls/hr Height 5 ft 1 in Weight 69.9 kg [place] Body Weight (kg) 50.90 BMI 29.1 Weight Status Overweight Subjective/Other Information Unable to interview patient d/ t confusion and moaning. Per RN, patient has not been able to eat much of his meals orally. Patient was previously on Glucerna 1.5 at 45 mL/hr for 20 hrs/day at , per chart. Percent of energy/protein needs met: 0%/0% Burn Absent Trauma Absent GI Symptoms None Current % PO Poor (25-49%) Minimum of two criteria No #2 Nutrition Diagnosis Increased nutrient needs ( specify in comment below) Comments: protein Etiology wound healing As Evidenced by Signs and Symptoms multiple pressure ulcers #1 Nutrition Diagnosis Inadequate oral intake Etiology chronic illness As Evidenced by Signs and Symptoms pt has PEG placement, eating < 25% of meals Is patient on ventilator? No Is Patient Ambulatory and/or Out of Bed No REE-([place]-confined to bed) [phone] Calculation Used for Recommendations Aaron Sigala Additional Notes Protein Needs: 87-105 g (1.25- 1.5 g/kg) Fluid Needs: 1 mL/kcal Nutrition Intervention Change Diet Order: Initiate TF via PEG per GI recommendations Nutrition Support: Glucerna 1.2 at 55 mL/hr (goal rate) Flush 85 mL q4h. Kcal 1,584 Protein (gm) 79 Fluid (mL) 1,063 Goal #1 Initiate TF Goal #2 Meet at least 80% of estimated energy and protein needs via TF Anticipated Discharge Needs: Enteral nutrition support Follow-Up By: 03/02/20 Additional Comments F/U for TF start/intakes
[2020-03-01] MEDS ORDERED: PHENYLEPHRINE/NS 1,000 MCG/10 ML SYRINGE (OR USE) IV ONE (14:13)
[2020-03-01 16:16] LABS: Hematocrit 35.7 % (35.5-45.6); Hemoglobin 10.9 gm/dl (11.8-15.2)
[2020-03-01] MEDS: SODIUM CHLORIDE 0.9% 1000 ML 1,000 ML IV SCH (18:15)
[2020-03-02] MEDS: INSULIN LISPRO 100 UNIT/ML VIAL 3 mL SUB-Q SCH ×3 (00:31→12:36)
[2020-03-02] MEDS: fentaNYL 100 MCG/2 ML INJ IV PRN (00:32)
[2020-03-02 08:14] LABS: Basophils % (Auto) 0.2 % (0.0-1.8); Eosinophils # (Auto) 0.1 K/mm3 (0.0-0.4); Eosinophils % (Auto) 0.5 % (0.0-4.3); Hematocrit 22.1 % (35.5-45.6); Hemoglobin 7.2 gm/dl (11.8-15.2); Lymphocytes # (Auto) 1.1 K/mm3 (1.2-5.4); Lymphocytes % (Auto) 7.3 % (13.4-35.0); Mean Corpuscular HGB Conc 33 % (32-34); Mean Corpuscular Volume 91 fl (84-94); Monocytes # (Auto) 0.8 K/mm3 (0.0-0.8); Monocytes % (Auto) 5.4 % (0.0-7.3); Platelet Count 230 K/mm3 (140-440); Red Blood Count 2.42 M/mm3 (3.65-5.03); Red Cell Distribution Width 19.1 % (13.2-15.2)
--- NOTE | 2020-03-02 09:48 | Progress Note ---
Assessment and Plan Assessment and plan: GI bleed Hx of recurrent GI bleed at [place] [facility]; EGD (-) x 2; R Hemicolectomy then subtotal colectomy 11/2019 for colonic bleeding Hypernatremia D5 water, CMP, repeat CMP in a.m. Symptomatic anemia Patient has been on coumadin x 7 years for portal vein thrombosis, but no recent imaging of PV at [place], and not clear he needs this (does have a hx of severe PAD as well as CHF 40%) Metabolic encephalopathy Neuro check, seizure precautions, aspiration precautions, fall precautions, supportive care. Chronic systolic heart failure. EF 40%. Compensated Vascular dementia Verbal prompting, verbal redirection, benzodiazepine therapy as clinically indicated, supportive care. Cerebral atherosclerosis Supportive care, risk factor reduction, low-cholesterol diet. Portal vein thrombosis Hold anticoagulation for now due to active GI bleed, supportive care Severe PAD. DVT prophylaxis SCD to bilateral lower extremities while in bed, hold anticoagulation now due to active GI bleed. 02/28/2020. Patient with episode of black tarry stool last night and a second episode this morning. Patient is s/p EGD on 02/27/2020 which revealed no evidence of upper GI bleeding and no varices in the stomach or esophagus. Check serial CBC. GI may need to perform SB enteroscopy. However, GI may consider palliative care discussion. Hold Plavix for today. 02/29/2020. Patient is s/p EGD on 02/27/2020. No evidence of upper GI bleeding. PEG in place. Preliminary nuclear medicine bleeding scan showed no evidence of bleeding over 1 hour. GI considering small bowel enteroscopy. Patient has received a total of 3 units PRBCs since admission. Patient with more episodes of black tarry stools occurring last night as well as this morning per nursing. Recheck CBC later today. 03/01/2020. Enteroscopy/ileoscopy completed by GI which revealed postsurgical changes in the rectum and ileocolonic anastomosis with few small diverticula in the ileum. No evidence of upper GI bleeding. Continue PPI and monitor H&H serially. Transfuse as needed. 03/02/2020. Enteroscopy/ileoscopy completed by GI which revealed postsurgical changes in the rectum and ileocolonic anastomosis with few small diverticula in the ileum. No evidence of upper GI bleeding. Continue PPI and monitor H&H serially. We will transfuse a unit of blood because he has dark stool. Monitor H&H. Prognosis guarded History Interval history: Patient was seen and evaluated this morning Patient said he is feeling okay Patient has dark stool Hospitalist Physical - Physical exam Narrative exam: Not in cardiopulmonary distress. The patient appeared well nourished and normally developed. Vital signs as documented. Head exam is unremarkable. No scleral icterus . Neck is without jugular venous distension, thyromegaly, or carotid bruits. Lungs are clear to auscultation. Cardiac exam reveals regular rate and Rhythm. Abdominal exam reveals normal bowel sounds, nontender, no organomegaly. Extremities are nonedematous and both femoral and pedal pulses are normal. LAST SAWYER: Alert and oriented 3. No focal weakness. - Constitutional Vitals: Temp Pulse Resp BP Pulse Ox 97.5 F L 114 H 22 149/81 99 03/02/20 04:00 03/02/20 06:00 03/02/20 06:00 03/02/20 06:00 03/02/20 06:00 General appearance: Present: mild distress Results - Labs CBC & Chem 7: 03/02/20 07:23 02/29/20 05:13 Labs: Laboratory Last Values WBC 15.0 K/mm3 (4.5-11.0) H 03/02/20 07:23 RBC 2.42 M/mm3 (3.65-5.03) L 03/02/20 07:23 Hgb 7.2 gm/dl (11.8-15.2) L D 03/02/20 07:23 Hct 22.1 % (35.5-45.6) L D 03/02/20 07:23 MCV 91 fl (84-94) 03/02/20 07:23 MCH 30 pg (28-32) 03/02/20 07:23 MCHC 33 % (32-34) 03/02/20 07:23 RDW 19.1 % (13.2-15.2) H 03/02/20 07:23 Plt Count 230 K/mm3 (140-440) 03/02/20 07:23 Lymph % (Auto) 7.3 % (13.4-35.0) L 03/02/20 07:23 [place] % (Auto) 5.4 % (0.0-7.3) 03/02/20 07:23 Eos % (Auto) 0.5 % (0.0-4.3) 03/02/20 07:23 Baso % (Auto) 0.2 % (0.0-1.8) 03/02/20 07:23 Lymph # (Auto) 1.1 K/mm3 (1.2-5.4) L 03/02/20 07:23 [place] # (Auto) 0.8 K/mm3 (0.0-0.8) 03/02/20 07: Eos # (Auto) 0.1 K/mm3 (0.0-0.4) 03/02/20 07: Baso # (Auto) 0.0 K/mm3 (0.0-0.1) 03/02/20 07:23 Add Manual Diff Complete 02/29/20 15:08 Total Counted 100 02/29/20 15:08 Seg Neutrophils % 86.6 % (40.0-70.0) H 03/02/20 07:23 Seg Neuts % (Manual) 86.0 % (40.0-70.0) H 02/29/20 15:08 Band Neutrophils % 0 % 02/29/20 15:08 Lymphocytes % (Manual) 7.0 % (13.4-35.0) L 02/29/20 15:08 Reactive Lymphs % (Man) 0 % 02/29/20 15:08 Monocytes % (Manual) 3.0 % (0.0-7.3) 02/29/20 15:08 Eosinophils % (Manual) 2.0 % (0.0-4.3) 02/29/20 15:08 Basophils % (Manual) 2.0 % (0.0-1.8) H 02/29/20 15:08 Metamyelocytes % 0 % 02/29/20 15:08 Myelocytes % 0 % 02/29/20 15:08 Promyelocytes % 0 % 02/29/20 15:08 Blast Cells % 0 % 02/29/20 15:08 Nucleated RBC % Not Reportable 02/29/20 15:08 Seg Neutrophils # 13.0 K/mm3 (1.8-7.7) H 03/02/20 07:23 Seg Neutrophils # Man 10.1 K/mm3 (1.8-7.7) H 02/29/20 15:08 Band Neutrophils # 0.0 K/mm3 02/29/20 15:08 Lymphocytes # (Manual) 0.8 K/mm3 (1.2-5.4) L 02/29/20 15:08 Abs React Lymphs (Man) 0.0 K/mm3 02/29/20 15:08 Monocytes # (Manual) 0.4 K/mm3 (0.0-0.8) 02/29/20 15:08 Eosinophils # (Manual) 0.2 K/mm3 (0.0-0.4) 02/29/20 15:08 Basophils # (Manual) 0.2 K/mm3 (0.0-0.1) H 02/29/20 15:08 Metamyelocytes # 0.0 K/mm3 02/29/20 15:08 Myelocytes # 0.0 K/mm3 02/29/20 15:08 Promyelocytes # 0.0 K/mm3 02/29/20 15:08 Blast Cells # 0.0 K/mm3 02/29/20 15:08 WBC Morphology Not Reportable 02/29/20 15:08 Hypersegmented Neuts Not Reportable 02/29/20 15:08 Hyposegmented Neuts Not Reportable 02/29/20 15:08 Hypogranular Neuts Not Reportable 02/29/20 15:08 Smudge Cells Not Reportable 02/29/20 15:08 Toxic Granulation Not Reportable 02/29/20 15:08 Toxic Vacuolation Not Reportable 02/29/20 15:08 Dohle Bodies Not Reportable 02/29/20 15:08 Pelger-Huet Anomaly Not Reportable 02/29/20 15:08 Pj Rods Not Reportable 02/29/20 15:08 Platelet Estimate Not Reportable 02/29/20 15:08 Clumped Platelets Few 02/29/20 15:08 Plt Clumps, EDTA Not Reportable 02/29/20 15:08 Large Platelets Not Reportable 02/29/20 15:08 Giant Platelets Not Reportable 02/29/20 15:08 Platelet Satelliting Not Reportable 02/29/20 15:08 Plt Morphology Comment Not Reportable 02/29/20 15:08 RBC Morphology Normal 02/29/20 15:08 Dimorphic RBCs Not Reportable 02/29/20 15:08 Polychromasia Not Reportable 02/29/20 15:08 Hypochromasia Not Reportable 02/29/20 15:08 Poikilocytosis Not Reportable 02/29/20 15:08 Anisocytosis Not Reportable 02/29/20 15:08 Microcytosis Not Reportable 02/29/20 15:08 Macrocytosis Not Reportable 02/29/20 15:08 Spherocytes Not Reportable 02/29/20 15:08 Pappenheimer Bodies Not Reportable 02/29/20 15:08 Sickle Cells Not Reportable 02/29/20 15:08 Target Cells Not Reportable 02/29/20 15:08 Tear Drop Cells Not Reportable 02/29/20 15:08 Ovalocytes Not Reportable 02/29/20 15:08 Helmet Cells Not Reportable 02/29/20 15:08 [place] Bodies Not Reportable 02/29/20 15:08 Bryan Rings Not Reportable 02/29/20 15:08 Hallock Cells Not Reportable 02/29/20 15:08 Bite Cells Not Reportable 02/29/20 15:08 Crenated Cell Not Reportable 02/29/20 15:08 Elliptocytes Not Reportable 02/29/20 15:08 Acanthocytes (Spur) Not Reportable 02/29/20 15:08 Rouleaux Not Reportable 02/29/20 15:08 Hemoglobin C Crystals Not Reportable 02/29/20 15:08 Schistocytes Not Reportable 02/29/20 15:08 Malaria parasites Not Reportable 02/29/20 15:08 Rambo Bodies Not Reportable 02/29/20 15:08 Hem Pathologist Commnt No 02/29/20 15:08 PT 17.2 Sec. (12.2-14.9) H 02/28/20 08:08 INR 1.39 (0.87-1.13) H 02/28/20 08:08 APTT 52.5 Sec. (24.2-36.6) H 02/26/20 13:34 Sodium 148 mmol/L (137-145) H 02/29/20 05:13 Potassium 3.6 mmol/L (3.6-5.0) 02/29/20 05:13 Chloride 118.1 mmol/L (98-107) H 02/29/20 05:13 Carbon Dioxide 22 mmol/L (22-30) 02/29/20 05:13 Anion Gap 12 mmol/L 02/29/20 05:13 BUN 25 mg/dL (9-20) H 02/29/20 05:13 Creatinine 0.7 mg/dL (0.8-1.3) L 02/29/20 05:13 Estimated GFR > 60 ml/min 02/29/20 05:13 BUN/Creatinine Ratio 36 % 02/29/20 05:13 Glucose 200 mg/dL (75-100) H 02/29/20 05:13 POC Glucose 212 mg/dL (70-105) H 03/02/20 05:38 Calcium 7.5 mg/dL (8.4-10.2) L 02/29/20 05:13 Magnesium 2.00 mg/dL (1.7-2.3) 02/26/20 13:34 Total Bilirubin 0.20 mg/dL (0.1-1.2) 02/26/20 13:34 AST 27 units/L (5-40) 02/26/20 13:34 ALT < 5 units/L (7-56) L 02/26/20 13:34 Alkaline Phosphatase 97 units/L (35-129) 02/26/20 13:34 Total Creatine Kinase 141 units/L (55-170) 02/26/20 13:34 Total Protein 5.4 g/dL (6.3-8.2) L 02/26/20 13:34 Albumin 1.6 g/dL (3.9-5) L 02/26/20 13:34 Albumin/Globulin Ratio 0.4 % 02/26/20 13:34 TSH 5.440 mlU/mL (0.270-4.200) H 02/26/20 13:34 Urine Color Yellow (Yellow) 02/26/20 03:10 Urine Turbidity Clear (Clear) 02/26/20 03:10 Urine pH 7.0 (5.0-7.0) 02/26/20 03:10 Ur Specific [place] 1.017 (1.003-1.030) 02/26/20 03:10 Urine Protein 30 mg/dl mg/dL (Negative) 02/26/20 03:10 Urine Glucose (UA) 50 mg/dL (Negative) 02/26/20 03:10 Urine Ketones Tr mg/dL (Negative) 02/26/20 03:10 Urine Blood Neg (Negative) 02/26/20 03:10 Urine Nitrite Neg (Negative) 02/26/20 03:10 Urine Bilirubin Neg (Negative) 02/26/20 03:10 Urine Urobilinogen < 2.0 mg/dL (<2.0) 02/26/20 03:10 Ur Leukocyte Esterase Neg (Negative) 02/26/20 03:10 Urine WBC (Auto) 5.0 /HPF (0.0-6.0) 02/26/20 03:10 Urine RBC (Auto) 1.0 /HPF (0.0-6.0) 02/26/20 03:10 U Epithel Cells (Auto) 1.0 /HPF (0-13.0) 02/26/20 03:10 Hyaline Casts 1 /LPF 02/26/20 03:10 Urine Yeast (Budding) Few /HPF 02/26/20 03:10 Blood Type A POSITIVE 02/29/20 00:55 Antibody Screen Negative 02/29/20 00:55 Crossmatch See Detail 02/29/20 00:55 Microbiology: Microbiology 02/27/20 03:25 Urine,Clean Catch Urine Culture - Final NO GROWTH AFTER 48 HOURS Vazquez/IV: Voiding Method Condom Catheter IV Catheter Type [Left Upper Mid-line arm] IV Catheter Type [Right Hand] Peripheral IV Active Medications - Current Medications Current Medications: Generic Name Dose Route Start Last Admin Trade Name Freq PRN Reason Stop Dose Admin Lipase/Protease/Amylase 1 each 02/27/20 16:00 Janice Chery 10,500 Unit FEEDTUBE PRN PRN For Clogged Feeding Tube Dextrose 50 ml 02/26/20 18:06 D50w (25gm) Syringe IV Q30MIN PRN Hypoglycemia Protocol Fentanyl 25 mcg 02/26/20 19:20 03/02/20 00:32 Sublimaze IV 25 mcg Q4H PRN Administration Pain , Severe (7-10) Sodium Chloride 1,000 mls @ 50 mls/hr 03/01/20 07:45 03/01/20 18:15 Nacl 0.9% 1000 Ml IV 50 mls/hr DIRECT RADHA Administration Insulin Human Lispro 0 unit 02/26/20 19:00 03/02/20 06:20 Humalog SUB-Q 4 unit Q6H RADHA Administration Protocol Lansoprazole 30 mg 02/28/20 10:00 03/01/20 09:41 Prevacid Solutab FEEDTUBE 30 mg QDAY RADHA Administration Multivitamins 5 ml 02/27/20 17:00 03/01/20 09:41 Centrum Liq FEEDTUBE 5 ml QDAY RADHA Administration Simple Syrup 15 ml 02/27/20 16:00 Simple Syrup FEEDTUBE PRN PRN Hypoglycemia Simple Syrup 30 ml 02/27/20 16:00 Simple Syrup FEEDTUBE PRN PRN Hypoglycemia Sodium Bicarbonate 325 mg 02/27/20 16:00 Sodium Bicarbonate FEEDTUBE PRN PRN For Clogged Feeding Tube Sodium Chloride 10 ml 02/26/20 22:00 03/01/20 22:09 Sodium Chloride Flush Syringe 10 Ml IV 10 ml BID RADHA Administration Sodium Chloride 10 ml 02/26/20 14:44 Sodium Chloride Flush Syringe 10 Ml IV PRN PRN LINE FLUSH Nutrition/Malnutrition Assess - Dietary Evaluation Nutrition/Malnutrition Findings: Nutrition Notes Start: 02/27/20 11:10 Freq: Status: Active Protocol: Document 02/27/20 11:51 AL (Rec: 02/27/20 12:09 AL [id number]) Co-Sign 02/27/20 11:51 MK Nutrition Notes Need for Assessment generated from: MD Order,menu planner,[facility] Initial or Follow up Assessment Current Diagnosis Heart Failure Other Pertinent Diagnosis vascular dementia, GI bleed, hyponatremia, gout, multiple wounds Current Diet Cardiac/Consistent CHO Labs/Tests Na 154 BUN 43 BG 302 Pertinent Medications Humalog NS 50 mls/hr Height 5 ft 1 in Weight 69.9 kg [place] Body Weight (kg) 50.90 BMI 29.1 Weight Status Overweight Subjective/Other Information Unable to interview patient d/ t confusion and moaning. Per RN, patient has not been able to eat much of his meals orally. Patient was previously on Glucerna 1.5 at 45 mL/hr for 20 hrs/day at [facility], per chart. Percent of energy/protein needs met: 0%/0% Burn Absent Trauma Absent GI Symptoms None Current % PO Poor (25-49%) Minimum of two criteria No #2 Nutrition Diagnosis Increased nutrient needs ( specify in comment below) Comments: protein Etiology wound healing As Evidenced by Signs and Symptoms multiple pressure ulcers #1 Nutrition Diagnosis Inadequate oral intake Etiology chronic illness As Evidenced by Signs and Symptoms pt has PEG placement, eating < 25% of meals Is patient on ventilator? No Is Patient Ambulatory and/or Out of Bed No REE-([facility]-confined to bed) [phone] Calculation Used for Recommendations [facility] Additional Notes Protein Needs: 87-105 g (1.25- 1.5 g/kg) Fluid Needs: 1 mL/kcal Nutrition Intervention Change Diet Order: Initiate TF via PEG per GI recommendations Nutrition Support: Glucerna 1.2 at 55 mL/hr (goal rate) Flush 85 mL q4h. Kcal 1,584 Protein (gm) 79 Fluid (mL) 1,063 Goal #1 Initiate TF Goal #2 Meet at least 80% of estimated energy and protein needs via TF Anticipated Discharge Needs: Enteral nutrition support Follow-Up By: 03/02/20 Additional Comments F/U for TF start/intakes
--- NOTE | 2020-03-02 10:15 | Gastroenterology Progress Note ---
Assessment and Plan # GI bleed - Hx of recurrent GI bleed at [place]; EGD (-) x 2; R Hemicolectomy then subtotal colectomy 11/2019 for colonic bleeding - No hematemesis or bleeding around PEG - Patient has been on coumadin x 7 years for portal vein thrombosis, but no recent imaging of PV at [place], and not clear he needs this (does have a hx of severe PAD as well as CHF 40%) - Suspect a small bowel source - s/p EGD on 02/27/2020. No evidence of upper GI bleeding. PEG in place. - drop H/H on 02/28/2020 and received blood transfusion. - NM bleeding scan without any active bleeding signs. - s/p push enterscopy and ileoscopy on 03/01/2020. No signs of bleeding and no source of bleeding found. Tattoo in small bowel to shahrzad the location reached. - H/H stable. having green stools. Rec - transfuse with Hgb goal >7. monitor H/H. - cont with tube feeds. - can resume ASA for PAD. - will follow. Subjective Date of service: 03/02/20 Interval history: Patient underwent push enteroscopy and ileoscopy yesterday without any signs of bleeding or source. Having green stool today. H/H stable. Objective - Constitutional Vitals: Temp Pulse Resp BP Pulse Ox 97.5 F L 114 H 22 149/81 99 03/02/20 04:00 03/02/20 06:00 03/02/20 06:00 03/02/20 06:00 03/02/20 06:00 General appearance: no acute distress - EENT ENT: hearing intact - Respiratory Respiratory effort: normal - Cardiovascular Rhythm: regular Heart Sounds: Present: S1 & S2 - Gastrointestinal General gastrointestinal: Present: soft, non-tender, non-distended, normal bowel sounds - Labs CBC & Chem 7: 03/02/20 07:23 02/29/20 05:13 Labs: Laboratory Results - last 24 hr 03/01/20 03/01/20 03/01/20 12:05 15:07 17:41 WBC RBC Hgb 10.9 L D Hct 35.7 D MCV MCH MCHC RDW Plt Count Lymph % (Auto) [place] % (Auto) Eos % (Auto) Baso % (Auto) Lymph # (Auto) [place] # (Auto) Eos # (Auto) Baso # (Auto) Seg Neutrophils % Seg Neutrophils # POC Glucose 183 H 162 H 03/01/20 03/02/20 03/02/20 23:33 05:38 07:23 WBC 15.0 H RBC 2.42 L Hgb 7.2 L D Hct 22.1 L D MCV 91 MCH 30 MCHC 33 RDW 19.1 H Plt Count 230 Lymph % (Auto) 7.3 L [place] % (Auto) 5.4 Eos % (Auto) 0.5 Baso % (Auto) 0.2 Lymph # (Auto) 1.1 L [place] # (Auto) 0.8 Eos # (Auto) 0.1 Baso # (Auto) 0.0 Seg Neutrophils % 86.6 H Seg Neutrophils # 13.0 H POC Glucose 157 H 212 H
[2020-03-02] MEDS: LANSOPRAZOLE 30 MG SOLUTAB FEEDTUBE SCH (10:25)
[2020-03-02] MEDS: MULTIVITAMINS 5 ML ORAL LIQUID FEEDTUBE SCH (10:25)
[2020-03-02] MEDS: SODIUM CHLORIDE 0.9% 1000 ML 1,000 ML IV SCH (12:36)
[2020-03-02] MEDS ORDERED: SODIUM CHLORIDE 0.9% 500 ML 500 ML IV SCH (13:30)
[2020-03-02 15:55] LABS: Hematocrit 22.9 % (35.5-45.6); Hemoglobin 7.4 gm/dl (11.8-15.2)
[2020-03-03 05:44] LABS: Basophils % (Auto) 0.2 % (0.0-1.8); Eosinophils % (Auto) 0.2 % (0.0-4.3); Hemoglobin 8.3 gm/dl (11.8-15.2); Lymphocytes # (Auto) 0.8 K/mm3 (1.2-5.4); Lymphocytes % (Auto) 6.4 % (13.4-35.0); Mean Corpuscular HGB Conc 32 % (32-34); Mean Corpuscular Volume 92 fl (84-94); Monocytes # (Auto) 0.7 K/mm3 (0.0-0.8); Monocytes % (Auto) 5.8 % (0.0-7.3); Platelet Count 239 K/mm3 (140-440); Red Blood Count 2.82 M/mm3 (3.65-5.03); Red Cell Distribution Width 17.8 % (13.2-15.2)
[2020-03-03 05:57] LABS: BUN/Creatinine Ratio 26; Blood Urea Nitrogen 18 mg/dL (9-20); Hemolysis Index 3
--- NOTE | 2020-03-03 08:54 | Progress Note ---
Assessment and Plan Assessment and plan: GI bleed Hx of recurrent GI bleed at [place] [facility]; EGD (-) x 2; R Hemicolectomy then subtotal colectomy 11/2019 for colonic bleeding Hypernatremia D5 water, CMP, repeat CMP in a.m. Symptomatic anemia Patient has been on coumadin x 7 years for portal vein thrombosis, but no recent imaging of PV at [place], and not clear he needs this (does have a hx of severe PAD as well as CHF 40%) Metabolic encephalopathy Neuro check, seizure precautions, aspiration precautions, fall precautions, supportive care. Chronic systolic heart failure. EF 40%. Compensated Vascular dementia Verbal prompting, verbal redirection, benzodiazepine therapy as clinically indicated, supportive care. Cerebral atherosclerosis Supportive care, risk factor reduction, low-cholesterol diet. Portal vein thrombosis Hold anticoagulation for now due to active GI bleed, supportive care Severe PAD. DVT prophylaxis SCD to bilateral lower extremities while in bed, hold anticoagulation now due to active GI bleed. 02/28/2020. Patient with episode of black tarry stool last night and a second episode this morning. Patient is s/p EGD on 02/27/2020 which revealed no evidence of upper GI bleeding and no varices in the stomach or esophagus. Check serial CBC. GI may need to perform SB enteroscopy. However, GI may consider palliative care discussion. Hold Plavix for today. 02/29/2020. Patient is s/p EGD on 02/27/2020. No evidence of upper GI bleeding. PEG in place. Preliminary nuclear medicine bleeding scan showed no evidence of bleeding over 1 hour. GI considering small bowel enteroscopy. Patient has received a total of 3 units PRBCs since admission. Patient with more episodes of black tarry stools occurring last night as well as this morning per nursing. Recheck CBC later today. 03/01/2020. Enteroscopy/ileoscopy completed by GI which revealed postsurgical changes in the rectum and ileocolonic anastomosis with few small diverticula in the ileum. No evidence of upper GI bleeding. Continue PPI and monitor H&H serially. Transfuse as needed. 03/02/2020. Enteroscopy/ileoscopy completed by GI which revealed postsurgical changes in the rectum and ileocolonic anastomosis with few small diverticula in the ileum. No evidence of upper GI bleeding. Continue PPI and monitor H&H serially. We will transfuse a unit of blood because he has dark stool. Monitor H&H. Prognosis guarded 03/03/2020; Enteroscopy/ileoscopy completed by GI which revealed postsurgical changes in the rectum and ileocolonic anastomosis with few small diverticula in the ileum. No evidence of upper GI bleeding. Continue PPI and monitor H&H serially. Patient was transfused a unit of blood yesterday and hemoglobin this morning is 8.3. I will consult PT OT evaluation. Continue tube feeding. GI is okay to start aspirin for peripheral arterial disease. History Interval history: Patient was seen and evaluated this morning Patient said he is feeling okay Patient has dark stool Hospitalist Physical - Physical exam Narrative exam: Not in cardiopulmonary distress. The patient appeared well nourished and normally developed. Vital signs as documented. Head exam is unremarkable. No scleral icterus . Neck is without jugular venous distension, thyromegaly, or carotid bruits. Lungs are clear to auscultation. Cardiac exam reveals regular rate and Rhythm. Abdominal exam reveals normal bowel sounds, nontender, no organomegaly. Extremities are nonedematous and both femoral and pedal pulses are normal. 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 No focal weakness. - Constitutional Vitals: Temp Pulse Resp BP Pulse Ox 97.8 F 115 H 20 150/86 98 03/03/20 05:15 03/03/20 05:15 03/03/20 05:15 03/03/20 05:15 03/03/20 05:15 General appearance: Present: mild distress Results - Labs CBC & Chem 7: 03/03/20 05:08 03/03/20 05:08 Labs: Laboratory Last Values WBC 12.4 K/mm3 (4.5-11.0) H 03/03/20 05:08 RBC 2.82 M/mm3 (3.65-5.03) L 03/03/20 05:08 Hgb 8.3 gm/dl (11.8-15.2) L 03/03/20 05:08 Hct 26.0 % (35.5-45.6) L 03/03/20 05:08 MCV 92 fl (84-94) 03/03/20 05:08 MCH 30 pg (28-32) 03/03/20 05:08 MCHC 32 % (32-34) 03/03/20 05:08 RDW 17.8 % (13.2-15.2) H 03/03/20 05:08 Plt Count 239 K/mm3 (140-440) 03/03/20 05:08 Lymph % (Auto) 6.4 % (13.4-35.0) L 03/03/20 05:08 [place] % (Auto) 5.8 % (0.0-7.3) 03/03/20 05:08 Eos % (Auto) 0.2 % (0.0-4.3) 03/03/20 05:08 Baso % (Auto) 0.2 % (0.0-1.8) 03/03/20 05:08 Lymph # (Auto) 0.8 K/mm3 (1.2-5.4) L 03/03/20 05:08 [place] # (Auto) 0.7 K/mm3 (0.0-0.8) 03/03/20 05:08 Eos # (Auto) 0.0 K/mm3 (0.0-0.4) 03/03/20 05:08 Baso # (Auto) 0.0 K/mm3 (0.0-0.1) 03/03/20 05:08 Add Manual Diff Complete 02/29/20 15:08 Total Counted 100 02/29/20 15:08 Seg Neutrophils % 87.4 % (40.0-70.0) H 03/03/20 05:08 Seg Neuts % (Manual) 86.0 % (40.0-70.0) H 02/29/20 15:08 Band Neutrophils % 0 % 02/29/20 15:08 Lymphocytes % (Manual) 7.0 % (13.4-35.0) L 02/29/20 15:08 Reactive Lymphs % (Man) 0 % 02/29/20 15:08 Monocytes % (Manual) 3.0 % (0.0-7.3) 02/29/20 15:08 Eosinophils % (Manual) 2.0 % (0.0-4.3) 02/29/20 15:08 Basophils % (Manual) 2.0 % (0.0-1.8) H 02/29/20 15:08 Metamyelocytes % 0 % 02/29/20 15:08 Myelocytes % 0 % 02/29/20 15:08 Promyelocytes % 0 % 02/29/20 15:08 Blast Cells % 0 % 02/29/20 15:08 Nucleated RBC % Not Reportable 02/29/20 15:08 Seg Neutrophils # 10.8 K/mm3 (1.8-7.7) H 03/03/20 05:08 Seg Neutrophils # Man 10.1 K/mm3 (1.8-7.7) H 02/29/20 15:08 Band Neutrophils # 0.0 K/mm3 02/29/20 15:08 Lymphocytes # (Manual) 0.8 K/mm3 (1.2-5.4) L 02/29/20 15:08 Abs React Lymphs (Man) 0.0 K/mm3 02/29/20 15:08 Monocytes # (Manual) 0.4 K/mm3 (0.0-0.8) 02/29/20 15:08 Eosinophils # (Manual) 0.2 K/mm3 (0.0-0.4) 02/29/20 15:08 Basophils # (Manual) 0.2 K/mm3 (0.0-0.1) H 02/29/20 15:08 Metamyelocytes # 0.0 K/mm3 02/29/20 15:08 Myelocytes # 0.0 K/mm3 02/29/20 15:08 Promyelocytes # 0.0 K/mm3 02/29/20 15:08 Blast Cells # 0.0 K/mm3 02/29/20 15:08 WBC Morphology Not Reportable 02/29/20 15:08 Hypersegmented Neuts Not Reportable 02/29/20 15:08 Hyposegmented Neuts Not Reportable 02/29/20 15:08 Hypogranular Neuts Not Reportable 02/29/20 15:08 Smudge Cells Not Reportable 02/29/20 15:08 Toxic Granulation Not Reportable 02/29/20 15:08 Toxic Vacuolation Not Reportable 02/29/20 15:08 Dohle Bodies Not Reportable 02/29/20 15:08 Pelger-Huet Anomaly Not Reportable 02/29/20 15:08 Pj Rods Not Reportable 02/29/20 15:08 Platelet Estimate Not Reportable 02/29/20 15:08 Clumped Platelets Few 02/29/20 15:08 Plt Clumps, EDTA Not Reportable 02/29/20 15:08 Large Platelets Not Reportable 02/29/20 15:08 Giant Platelets Not Reportable 02/29/20 15:08 Platelet Satelliting Not Reportable 02/29/20 15:08 Plt Morphology Comment Not Reportable 02/29/20 15:08 RBC Morphology Normal 02/29/20 15:08 Dimorphic RBCs Not Reportable 02/29/20 15:08 Polychromasia Not Reportable 02/29/20 15:08 Hypochromasia Not Reportable 02/29/20 15:08 Poikilocytosis Not Reportable 02/29/20 15:08 Anisocytosis Not Reportable 02/29/20 15:08 Microcytosis Not Reportable 02/29/20 15:08 Macrocytosis Not Reportable 02/29/20 15:08 Spherocytes Not Reportable 02/29/20 15:08 Pappenheimer Bodies Not Reportable 02/29/20 15:08 Sickle Cells Not Reportable 02/29/20 15:08 Target Cells Not Reportable 02/29/20 15:08 Tear Drop Cells Not Reportable 02/29/20 15:08 Ovalocytes Not Reportable 02/29/20 15:08 Helmet Cells Not Reportable 02/29/20 15:08 [place] Bodies Not Reportable 02/29/20 15:08 [place] Rings Not Reportable 02/29/20 15:08 [place] Cells Not Reportable 02/29/20 15:08 Bite Cells Not Reportable 02/29/20 15:08 Crenated Cell Not Reportable 02/29/20 15:08 Elliptocytes Not Reportable 02/29/20 15:08 Acanthocytes (Spur) Not Reportable 02/29/20 15:08 Rouleaux Not Reportable 02/29/20 15:08 Hemoglobin C Crystals Not Reportable 02/29/20 15:08 Schistocytes Not Reportable 02/29/20 15:08 Malaria parasites Not Reportable 02/29/20 15:08 Rambo Bodies Not Reportable 02/29/20 15:08 Hem Pathologist Commnt No 02/29/20 15:08 PT 17.2 Sec. (12.2-14.9) H 02/28/20 08:08 INR 1.39 (0.87-1.13) H 02/28/20 08:08 APTT 52.5 Sec. (24.2-36.6) H 02/26/20 13:34 Sodium 144 mmol/L (137-145) 03/03/20 05:08 Potassium 3.9 mmol/L (3.6-5.0) 03/03/20 05:08 Chloride 113.7 mmol/L (98-107) H 03/03/20 05:08 Carbon Dioxide 16 mmol/L (22-30) L 03/03/20 05:08 Anion Gap 18 mmol/L 03/03/20 05:08 BUN 18 mg/dL (9-20) 03/03/20 05:08 Creatinine 0.7 mg/dL (0.8-1.3) L 03/03/20 05:08 Estimated GFR > 60 ml/min 03/03/20 05:08 BUN/Creatinine Ratio 26 % 03/03/20 05:08 Glucose 185 mg/dL (75-100) H 03/03/20 05:08 POC Glucose 179 mg/dL (70-105) H 03/03/20 03:07 Calcium 8.0 mg/dL (8.4-10.2) L 03/03/20 05:08 Magnesium 2.00 mg/dL (1.7-2.3) 02/26/20 13:34 Total Bilirubin 0.20 mg/dL (0.1-1.2) 02/26/20 13:34 AST 27 units/L (5-40) 02/26/20 13:34 ALT < 5 units/L (7-56) L 02/26/20 13:34 Alkaline Phosphatase 97 units/L (35-129) 02/26/20 13:34 Total Creatine Kinase 141 units/L (55-170) 02/26/20 13:34 Total Protein 5.4 g/dL (6.3-8.2) L 02/26/20 13:34 Albumin 1.6 g/dL (3.9-5) L 02/26/20 13:34 Albumin/Globulin Ratio 0.4 % 02/26/20 13:34 TSH 5.440 mlU/mL (0.270-4.200) H 02/26/20 13:34 Urine Color Yellow (Yellow) 02/26/20 03:10 Urine Turbidity Clear (Clear) 02/26/20 03:10 Urine pH 7.0 (5.0-7.0) 02/26/20 03:10 Ur Specific [place] 1.017 (1.003-1.030) 02/26/20 03:10 Urine Protein 30 mg/dl mg/dL (Negative) 02/26/20 03:10 Urine Glucose (UA) 50 mg/dL (Negative) 02/26/20 03:10 Urine Ketones Tr mg/dL (Negative) 02/26/20 03:10 Urine Blood Neg (Negative) 02/26/20 03:10 Urine Nitrite Neg (Negative) 02/26/20 03:10 Urine Bilirubin Neg (Negative) 02/26/20 03:10 Urine Urobilinogen < 2.0 mg/dL (<2.0) 02/26/20 03:10 Ur Leukocyte Esterase Neg (Negative) 02/26/20 03:10 Urine WBC (Auto) 5.0 /HPF (0.0-6.0) 02/26/20 03:10 Urine RBC (Auto) 1.0 /HPF (0.0-6.0) 02/26/20 03:10 U Epithel Cells (Auto) 1.0 /HPF (0-13.0) 02/26/20 03:10 Hyaline Casts 1 /LPF 02/26/20 03:10 Urine Yeast (Budding) Few /HPF 02/26/20 03:10 Blood Type A POSITIVE 02/29/20 00:55 Antibody Screen Negative 02/29/20 00:55 Crossmatch See Detail 02/29/20 00:55 Vazquez/IV: Voiding Method Condom Catheter IV Catheter Type [Left Upper Mid-line arm] IV Catheter Type [Right Hand] Peripheral IV Active Medications - Current Medications Current Medications: Generic Name Dose Route Start Last Admin Trade Name Freq PRN Reason Stop Dose Admin Lipase/Protease/Amylase 1 each 02/27/20 16:00 Pancretong Chery 10,500 Unit FEEDTUBE PRN PRN For Clogged Feeding Tube Dextrose 50 ml 02/26/20 18:06 D50w (25gm) Syringe IV Q30MIN PRN Hypoglycemia Protocol Fentanyl 25 mcg 02/26/20 19:20 03/02/20 00:32 Sublimaze IV 25 mcg Q4H PRN Administration Pain , Severe (7-10) Sodium Chloride 1,000 mls @ 50 mls/hr 03/01/20 07:45 03/02/20 12:36 Nacl 0.9% 1000 Ml IV 50 mls/hr DIRECT RADHA Administration Insulin Human Lispro 0 unit 02/26/20 19:00 03/02/20 12:36 Humalog SUB-Q 4 unit Q6H RADHA Administration Protocol Lansoprazole 30 mg 02/28/20 10:00 03/02/20 10:25 Prevacid Solutab FEEDTUBE 30 mg QDAY RADHA Administration Multivitamins 5 ml 02/27/20 17:00 03/02/20 10:25 Centrum Liq FEEDTUBE 5 ml QDAY RADHA Administration Simple Syrup 15 ml 02/27/20 16:00 Simple Syrup FEEDTUBE PRN PRN Hypoglycemia Simple Syrup 30 ml 02/27/20 16:00 Simple Syrup FEEDTUBE PRN PRN Hypoglycemia Sodium Bicarbonate 325 mg 02/27/20 16:00 Sodium Bicarbonate FEEDTUBE PRN PRN For Clogged Feeding Tube Sodium Chloride 10 ml 02/26/20 22:00 03/02/20 22:17 Sodium Chloride Flush Syringe 10 Ml IV 10 ml BID RADHA Administration Sodium Chloride 10 ml 02/26/20 14:44 Sodium Chloride Flush Syringe 10 Ml IV PRN PRN LINE FLUSH Nutrition/Malnutrition Assess - Dietary Evaluation Nutrition/Malnutrition Findings: Nutrition Notes Start: 02/27/20 11:10 Freq: Status: Active Protocol: Document 03/02/20 12:50 AL (Rec: 03/02/20 13:24 AL [id number]) Co-Sign 03/02/20 12:50 MK Nutrition Notes Initial or Follow up Reassessment Current Diagnosis Heart Failure Other Pertinent Diagnosis vascular dementia, GI bleed, hyponatremia, gout, multiple wounds Current Diet Glucerna 1.2 at 55 mL/hr (goal rate) Labs/Tests Na 148 BUN 25 Cr 0.7 Pertinent Medications Humalog NS 50 mls/hr MVI Height 5 ft 1 in Weight 69.9 kg [place] Body Weight (kg) 50.90 BMI 29.1 Weight Status Overweight Subjective/Other Information Per RN, patient is tolerating TF well at goal rate. Per STUDENT FINANCIAL SERVICES COUNSELOR recommndations, patient is on Pureed diet w/ thin liquids. Will decrease TF if patient is able to meet a portion of needs through PO intake. Percent of energy/protein needs met: 100%/91% Burn Absent Trauma Absent GI Symptoms None Minimum of two criteria No physical signs of malnutrition #2 Nutrition Diagnosis Increased nutrient needs ( specify in comment below) Diagnosis Progress(for reassessment Continues documentation) #1 Nutrition Diagnosis Inadequate oral intake Diagnosis Progress(for reassessment Continues documentation) Is patient on ventilator? No Is Patient Ambulatory and/or Out of Bed No REE-([facility]-confined to bed) [phone] Calculation Used for Recommendations [facility] Additional Notes Protein Needs: 87-105 g (1.25- 1.5 g/kg) Fluid Needs: 1 mL/kcal Nutrition Intervention Change Diet Order: TF + Pureed w/ thin liquids ( per STUDENT FINANCIAL SERVICES COUNSELOR recomendations) Nutrition Support: Glucerna 1.2 at 55 mL/hr (goal rate) Flush 85 mL q4h. Kcal 1,584 Protein (gm) 79 Fluid (mL) 1,063 Goal #1 Meet at least 80% of estimated energy and protein needs via PO/TF Anticipated Discharge Needs: Enteral nutrition support Follow-Up By: 03/03/20 Additional Comments F/U for intake, tolerance
[2020-03-03] MEDS: LANSOPRAZOLE 30 MG SOLUTAB FEEDTUBE SCH (09:20)
[2020-03-03] MEDS: ASPIRIN 81 MG TAB CHEW PO SCH (09:20)
[2020-03-03] MEDS: SODIUM CHLORIDE 0.9% 1000 ML 1,000 ML IV SCH (09:21)
[2020-03-03] MEDS: MULTIVITAMINS 5 ML ORAL LIQUID FEEDTUBE SCH (11:20)
[2020-03-03] MEDS: INSULIN LISPRO 100 UNIT/ML VIAL 3 mL SUB-Q SCH ×4 (11:21→19:01)
--- NOTE | 2020-03-03 16:57 | Gastroenterology Progress Note ---
Assessment and Plan # GI bleed - Hx of recurrent GI bleed at [place]; EGD (-) x 2; R Hemicolectomy then subtotal colectomy 11/2019 for colonic bleeding - No hematemesis or bleeding around PEG - Patient has been on coumadin x 7 years for portal vein thrombosis, but no recent imaging of PV at [place], and not clear he needs this (does have a hx of severe PAD as well as CHF 40%) - Suspect a small bowel source - s/p EGD on 02/27/2020. No evidence of upper GI bleeding. PEG in place. - drop H/H on 02/28/2020 and received blood transfusion. - NM bleeding scan without any active bleeding signs. - s/p push enterscopy and ileoscopy on 03/01/2020. No signs of bleeding and no source of bleeding found. Tattoo in small bowel to shahrzad the location reached. - H/H stable. no further bleeding episodes. Rec - transfuse with Hgb goal >7. monitor H/H. - cont with tube feeds. - currently on ASA for PAD. - will follow. Subjective Date of service: 03/03/20 Interval history: Per nursing, patient has soft stool but no blood. No abdominal pain. Objective - Constitutional Vitals: Temp Pulse Resp BP Pulse Ox 97.5 F L 105 H 20 146/88 98 03/03/20 07:51 03/03/20 07:51 03/03/20 07:51 03/03/20 07:51 03/03/20 07:51 General appearance: no acute distress - EENT ENT: hearing intact - Respiratory Respiratory effort: normal - Cardiovascular Rhythm: regular Heart Sounds: Present: S1 & S2 - Gastrointestinal General gastrointestinal: Present: soft, non-tender, non-distended - Integumentary Integumentary: Present: clear, warm - Labs CBC & Chem 7: 03/03/20 05:08 03/03/20 05:08 Labs: Laboratory Results - last 24 hr 02/29/20 03/02/20 03/03/20 00:55 12:18 03:07 WBC RBC Hgb Hct MCV MCH MCHC RDW Plt Count Lymph % (Auto) [place] % (Auto) Eos % (Auto) Baso % (Auto) Lymph # (Auto) [place] # (Auto) Eos # (Auto) Baso # (Auto) Seg Neutrophils % Seg Neutrophils # Sodium Potassium Chloride Carbon Dioxide Anion Gap BUN Creatinine Estimated GFR BUN/Creatinine Ratio Glucose POC Glucose 220 H 179 H Calcium Blood Type A POSITIVE Antibody Screen Negative Crossmatch See Detail 03/03/20 03/03/20 03/03/20 05:08 05:08 09:49 WBC 12.4 H RBC 2.82 L Hgb 8.3 L Hct 26.0 L MCV 92 MCH 30 MCHC 32 RDW 17.8 H Plt Count 239 Lymph % (Auto) 6.4 L [place] % (Auto) 5.8 Eos % (Auto) 0.2 Baso % (Auto) 0.2 Lymph # (Auto) 0.8 L [place] # (Auto) 0.7 Eos # (Auto) 0.0 Baso # (Auto) 0.0 Seg Neutrophils % 87.4 H Seg Neutrophils # 10.8 H Sodium 144 Potassium 3.9 Chloride 113.7 H Carbon Dioxide 16 L Anion Gap 18 BUN 18 Creatinine 0.7 L Estimated GFR > 60 BUN/Creatinine Ratio 26 Glucose 185 H POC Glucose 201 H Calcium 8.0 L Blood Type Antibody Screen Crossmatch 03/03/20 12:32 WBC RBC Hgb Hct MCV MCH MCHC RDW Plt Count Lymph % (Auto) [place] % (Auto) Eos % (Auto) Baso % (Auto) Lymph # (Auto) [place] # (Auto) Eos # (Auto) Baso # (Auto) Seg Neutrophils % Seg Neutrophils # Sodium Potassium Chloride Carbon Dioxide Anion Gap BUN Creatinine Estimated GFR BUN/Creatinine Ratio Glucose POC Glucose 255 H Calcium Blood Type Antibody Screen Crossmatch
[2020-03-04] MEDS: INSULIN LISPRO 100 UNIT/ML VIAL 3 mL SUB-Q SCH ×6 (01:00→21:14)
[2020-03-04 05:37] LABS: Basophils % (Auto) 0.1 % (0.0-1.8); Eosinophils % (Auto) 0.3 % (0.0-4.3); Hematocrit 24.7 % (35.5-45.6); Hemoglobin 7.9 gm/dl (11.8-15.2); Lymphocytes # (Auto) 0.5 K/mm3 (1.2-5.4); Lymphocytes % (Auto) 4.3 % (13.4-35.0); Mean Corpuscular HGB Conc 32 % (32-34); Mean Corpuscular Volume 92 fl (84-94); Monocytes # (Auto) 0.7 K/mm3 (0.0-0.8); Monocytes % (Auto) 5.7 % (0.0-7.3); Platelet Count 244 K/mm3 (140-440); Red Blood Count 2.69 M/mm3 (3.65-5.03); Red Cell Distribution Width 19.3 % (13.2-15.2)
[2020-03-04 05:47] LABS: Blood Urea Nitrogen 18 mg/dL (9-20); Hemolysis Index 0
[2020-03-04 05:51] LABS: BUN/Creatinine Ratio 30
--- NOTE | 2020-03-04 09:07 | Progress Note ---
Assessment and Plan Assessment and plan: GI bleed Hx of recurrent GI bleed at [facility]; EGD (-) x 2; R Hemicolectomy then subtotal colectomy 11/2019 for colonic bleeding Hypernatremia D5 water, CMP, repeat CMP in a.m. Symptomatic anemia Patient has been on coumadin x 7 years for portal vein thrombosis, but no recent imaging of PV at [place], and not clear he needs this (does have a hx of severe PAD as well as CHF 40%) Metabolic encephalopathy Neuro check, seizure precautions, aspiration precautions, fall precautions, supportive care. Chronic systolic heart failure. EF 40%. Compensated Vascular dementia Verbal prompting, verbal redirection, benzodiazepine therapy as clinically indicated, supportive care. Cerebral atherosclerosis Supportive care, risk factor reduction, low-cholesterol diet. Portal vein thrombosis Hold anticoagulation for now due to active GI bleed, supportive care Severe PAD. DVT prophylaxis SCD to bilateral lower extremities while in bed, hold anticoagulation now due to active GI bleed. 02/28/2020. Patient with episode of black tarry stool last night and a second episode this morning. Patient is s/p EGD on 02/27/2020 which revealed no evidence of upper GI bleeding and no varices in the stomach or esophagus. Check serial CBC. GI may need to perform SB enteroscopy. However, GI may consider palliative care discussion. Hold Plavix for today. 02/29/2020. Patient is s/p EGD on 02/27/2020. No evidence of upper GI bleeding. PEG in place. Preliminary nuclear medicine bleeding scan showed no evidence of bleeding over 1 hour. GI considering small bowel enteroscopy. Patient has received a total of 3 units PRBCs since admission. Patient with more episodes of black tarry stools occurring last night as well as this morning per nursing. Recheck CBC later today. 03/01/2020. Enteroscopy/ileoscopy completed by GI which revealed postsurgical changes in the rectum and ileocolonic anastomosis with few small diverticula in the ileum. No evidence of upper GI bleeding. Continue PPI and monitor H&H serially. Transfuse as needed. 03/02/2020. Enteroscopy/ileoscopy completed by GI which revealed postsurgical changes in the rectum and ileocolonic anastomosis with few small diverticula in the ileum. No evidence of upper GI bleeding. Continue PPI and monitor H&H serially. We will transfuse a unit of blood because he has dark stool. Monitor H&H. Prognosis guarded 03/03/2020; Enteroscopy/ileoscopy completed by GI which revealed postsurgical changes in the rectum and ileocolonic anastomosis with few small diverticula in the ileum. No evidence of upper GI bleeding. Continue PPI and monitor H&H serially. Patient was transfused a unit of blood yesterday and hemoglobin this morning is 8.3. I will consult PT OT evaluation. Continue tube feeding. GI is okay to start aspirin for peripheral arterial disease. 03/04/2020; patient's H&H is stable. Patient was evaluated by PT and recommended SNF. Covid test ordered. GI consult appreciated. History Interval history: Patient was seen and evaluated this morning Patient said he is feeling okay Hospitalist Physical - Physical exam Narrative exam: Not in cardiopulmonary distress. The patient appeared well nourished and normally developed. Vital signs as documented. Head exam is unremarkable. No scleral icterus . Neck is without jugular venous distension, thyromegaly, or carotid bruits. Lungs are clear to auscultation. Cardiac exam reveals regular rate and Rhythm. Abdominal exam reveals normal bowel sounds, nontender, no organomegaly. Extremities are nonedematous and both femoral and pedal pulses are normal. 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 No focal weakness. - Constitutional Vitals: Temp Pulse Resp BP Pulse Ox 97.8 F 125 H 20 171/92 96 03/04/20 08:20 03/04/20 08:20 03/04/20 08:20 03/04/20 08:20 03/04/20 08:20 General appearance: Present: mild distress Results - Labs CBC & Chem 7: 03/04/20 04:29 03/04/20 04:29 Labs: Laboratory Last Values WBC 11.4 K/mm3 (4.5-11.0) H 03/04/20 04:29 RBC 2.69 M/mm3 (3.65-5.03) L 03/04/20 04:29 Hgb 7.9 gm/dl (11.8-15.2) L 03/04/20 04:29 Hct 24.7 % (35.5-45.6) L 03/04/20 04:29 MCV 92 fl (84-94) 03/04/20 04:29 MCH 29 pg (28-32) 03/04/20 04:29 MCHC 32 % (32-34) 03/04/20 04:29 RDW 19.3 % (13.2-15.2) H 03/04/20 04:29 Plt Count 244 K/mm3 (140-440) 03/04/20 04:29 Lymph % (Auto) 4.3 % (13.4-35.0) L 03/04/20 04:29 [place] % (Auto) 5.7 % (0.0-7.3) 03/04/20 04:29 Eos % (Auto) 0.3 % (0.0-4.3) 03/04/20 04:29 Baso % (Auto) 0.1 % (0.0-1.8) 03/04/20 04:29 Lymph # (Auto) 0.5 K/mm3 (1.2-5.4) L 03/04/20 04:29 [place] # (Auto) 0.7 K/mm3 (0.0-0.8) 03/04/20 04:29 Eos # (Auto) 0.0 K/mm3 (0.0-0.4) 03/04/20 04:29 Baso # (Auto) 0.0 K/mm3 (0.0-0.1) 03/04/20 04:29 Add Manual Diff Complete 02/29/20 15:08 Total Counted 100 02/29/20 15:08 Seg Neutrophils % 89.6 % (40.0-70.0) H 03/04/20 04:29 Seg Neuts % (Manual) 86.0 % (40.0-70.0) H 02/29/20 15:08 Band Neutrophils % 0 % 02/29/20 15:08 Lymphocytes % (Manual) 7.0 % (13.4-35.0) L 02/29/20 15:08 Reactive Lymphs % (Man) 0 % 02/29/20 15:08 Monocytes % (Manual) 3.0 % (0.0-7.3) 02/29/20 15:08 Eosinophils % (Manual) 2.0 % (0.0-4.3) 02/29/20 15:08 Basophils % (Manual) 2.0 % (0.0-1.8) H 02/29/20 15:08 Metamyelocytes % 0 % 02/29/20 15:08 Myelocytes % 0 % 02/29/20 15:08 Promyelocytes % 0 % 02/29/20 15:08 Blast Cells % 0 % 02/29/20 15:08 Nucleated RBC % Not Reportable 02/29/20 15:08 Seg Neutrophils # 10.2 K/mm3 (1.8-7.7) H 03/04/20 04:29 Seg Neutrophils # Man 10.1 K/mm3 (1.8-7.7) H 02/29/20 15:08 Band Neutrophils # 0.0 K/mm3 02/29/20 15:08 Lymphocytes # (Manual) 0.8 K/mm3 (1.2-5.4) L 02/29/20 15:08 Abs React Lymphs (Man) 0.0 K/mm3 02/29/20 15:08 Monocytes # (Manual) 0.4 K/mm3 (0.0-0.8) 02/29/20 15:08 Eosinophils # (Manual) 0.2 K/mm3 (0.0-0.4) 02/29/20 15:08 Basophils # (Manual) 0.2 K/mm3 (0.0-0.1) H 02/29/20 15:08 Metamyelocytes # 0.0 K/mm3 02/29/20 15:08 Myelocytes # 0.0 K/mm3 02/29/20 15:08 Promyelocytes # 0.0 K/mm3 02/29/20 15:08 Blast Cells # 0.0 K/mm3 02/29/20 15:08 WBC Morphology Not Reportable 02/29/20 15:08 Hypersegmented Neuts Not Reportable 02/29/20 15:08 Hyposegmented Neuts Not Reportable 02/29/20 15:08 Hypogranular Neuts Not Reportable 02/29/20 15:08 Smudge Cells Not Reportable 02/29/20 15:08 Toxic Granulation Not Reportable 02/29/20 15:08 Toxic Vacuolation Not Reportable 02/29/20 15:08 Dohle Bodies Not Reportable 02/29/20 15:08 Pelger-Huet Anomaly Not Reportable 02/29/20 15:08 Pj Rods Not Reportable 02/29/20 15:08 Platelet Estimate Not Reportable 02/29/20 15:08 Clumped Platelets Few 02/29/20 15:08 Plt Clumps, EDTA Not Reportable 02/29/20 15:08 Large Platelets Not Reportable 02/29/20 15:08 Giant Platelets Not Reportable 02/29/20 15:08 Platelet Satelliting Not Reportable 02/29/20 15:08 Plt Morphology Comment Not Reportable 02/29/20 15:08 RBC Morphology Normal 02/29/20 15:08 Dimorphic RBCs Not Reportable 02/29/20 15:08 Polychromasia Not Reportable 02/29/20 15:08 Hypochromasia Not Reportable 02/29/20 15:08 Poikilocytosis Not Reportable 02/29/20 15:08 Anisocytosis Not Reportable 02/29/20 15:08 Microcytosis Not Reportable 02/29/20 15:08 Macrocytosis Not Reportable 02/29/20 15:08 Spherocytes Not Reportable 02/29/20 15:08 Pappenheimer Bodies Not Reportable 02/29/20 15:08 Sickle Cells Not Reportable 02/29/20 15:08 Target Cells Not Reportable 02/29/20 15:08 Tear Drop Cells Not Reportable 02/29/20 15:08 Ovalocytes Not Reportable 02/29/20 15:08 Helmet Cells Not Reportable 02/29/20 15:08 [place] Bodies Not Reportable 02/29/20 15:08 [place] Rings Not Reportable 02/29/20 15:08 [place] Cells Not Reportable 02/29/20 15:08 Bite Cells Not Reportable 02/29/20 15:08 Crenated Cell Not Reportable 02/29/20 15:08 Elliptocytes Not Reportable 02/29/20 15:08 Acanthocytes (Spur) Not Reportable 02/29/20 15:08 Rouleaux Not Reportable 02/29/20 15:08 Hemoglobin C Crystals Not Reportable 02/29/20 15:08 Schistocytes Not Reportable 02/29/20 15:08 Malaria parasites Not Reportable 02/29/20 15:08 Rambo Bodies Not Reportable 02/29/20 15:08 Hem Pathologist Commnt No 02/29/20 15:08 PT 17.2 Sec. (12.2-14.9) H 02/28/20 08:08 INR 1.39 (0.87-1.13) H 02/28/20 08:08 APTT 52.5 Sec. (24.2-36.6) H 02/26/20 13:34 Sodium 147 mmol/L (137-145) H 03/04/20 04:29 Potassium 3.7 mmol/L (3.6-5.0) 03/04/20 04:29 Chloride 117.1 mmol/L (98-107) H 03/04/20 04:29 Carbon Dioxide 15 mmol/L (22-30) L 03/04/20 04:29 Anion Gap 19 mmol/L 03/04/20 04:29 BUN 18 mg/dL (9-20) 03/04/20 04:29 Creatinine 0.6 mg/dL (0.8-1.3) L 03/04/20 04:29 Estimated GFR > 60 ml/min 03/04/20 04:29 BUN/Creatinine Ratio 30 % 03/04/20 04:29 Glucose 136 mg/dL (75-100) H 03/04/20 04:29 POC Glucose 156 mg/dL (70-105) H 03/04/20 06:51 Calcium 8.0 mg/dL (8.4-10.2) L 03/04/20 04:29 Magnesium 2.00 mg/dL (1.7-2.3) 02/26/20 13:34 Total Bilirubin 0.20 mg/dL (0.1-1.2) 02/26/20 13:34 AST 27 units/L (5-40) 02/26/20 13:34 ALT < 5 units/L (7-56) L 02/26/20 13:34 Alkaline Phosphatase 97 units/L (35-129) 02/26/20 13:34 Total Creatine Kinase 141 units/L (55-170) 02/26/20 13:34 Total Protein 5.4 g/dL (6.3-8.2) L 02/26/20 13:34 Albumin 1.6 g/dL (3.9-5) L 02/26/20 13:34 Albumin/Globulin Ratio 0.4 % 02/26/20 13:34 TSH 5.440 mlU/mL (0.270-4.200) H 02/26/20 13:34 Urine Color Yellow (Yellow) 02/26/20 03:10 Urine Turbidity Clear (Clear) 02/26/20 03:10 Urine pH 7.0 (5.0-7.0) 02/26/20 03:10 Ur Specific Slater 1.017 (1.003-1.030) 02/26/20 03:10 Urine Protein 30 mg/dl mg/dL (Negative) 02/26/20 03:10 Urine Glucose (UA) 50 mg/dL (Negative) 02/26/20 03:10 Urine Ketones Tr mg/dL (Negative) 02/26/20 03:10 Urine Blood Neg (Negative) 02/26/20 03:10 Urine Nitrite Neg (Negative) 02/26/20 03:10 Urine Bilirubin Neg (Negative) 02/26/20 03:10 Urine Urobilinogen < 2.0 mg/dL (<2.0) 02/26/20 03:10 Ur Leukocyte Esterase Neg (Negative) 02/26/20 03:10 Urine WBC (Auto) 5.0 /HPF (0.0-6.0) 02/26/20 03:10 Urine RBC (Auto) 1.0 /HPF (0.0-6.0) 02/26/20 03:10 U Epithel Cells (Auto) 1.0 /HPF (0-13.0) 02/26/20 03:10 Hyaline Casts 1 /LPF 02/26/20 03:10 Urine Yeast (Budding) Few /HPF 02/26/20 03:10 Blood Type A POSITIVE 02/29/20 00:55 Antibody Screen Negative 02/29/20 00:55 Crossmatch See Detail 02/29/20 00:55 Vazquez/IV: Voiding Method Condom Catheter IV Catheter Type [Left Upper Mid-line arm] IV Catheter Type [Right Hand] Peripheral IV Active Medications - Current Medications Current Medications: Generic Name Dose Route Start Last Admin Trade Name Freq PRN Reason Stop Dose Admin Lipase/Protease/Amylase 1 each 02/27/20 16:00 Pancretong Chery 10,500 Unit FEEDTUBE PRN PRN For Clogged Feeding Tube Aspirin 81 mg 03/03/20 10:00 03/03/20 09:20 Baby Aspirin PO 81 mg QDAY RADHA Administration Dextrose 50 ml 02/26/20 18:06 D50w (25gm) Syringe IV Q30MIN PRN Hypoglycemia Protocol Fentanyl 25 mcg 02/26/20 19:20 03/02/20 00:32 Sublimaze IV 25 mcg Q4H PRN Administration Pain , Severe (7-10) Sodium Chloride 1,000 mls @ 50 mls/hr 03/01/20 07:45 03/03/20 09:21 Nacl 0.9% 1000 Ml IV 50 mls/hr DIRECT RADHA Administration Insulin Human Lispro 0 unit 02/26/20 19:00 03/04/20 01:00 Humalog SUB-Q Not Given Q6H RADHA Protocol Lansoprazole 30 mg 02/28/20 10:00 03/03/20 09:20 Prevacid Solutab FEEDTUBE 30 mg QDAY RADHA Administration Multivitamins 5 ml 02/27/20 17:00 03/03/20 11:20 Centrum Liq FEEDTUBE 5 ml QDAY RADHA Administration Simple Syrup 15 ml 02/27/20 16:00 Simple Syrup FEEDTUBE PRN PRN Hypoglycemia Simple Syrup 30 ml 02/27/20 16:00 Simple Syrup FEEDTUBE PRN PRN Hypoglycemia Sodium Bicarbonate 325 mg 02/27/20 16:00 Sodium Bicarbonate FEEDTUBE PRN PRN For Clogged Feeding Tube Sodium Chloride 10 ml 02/26/20 22:00 03/04/20 05:05 Sodium Chloride Flush Syringe 10 Ml IV 10 ml BID RADHA Administration Sodium Chloride 10 ml 02/26/20 14:44 Sodium Chloride Flush Syringe 10 Ml IV PRN PRN LINE FLUSH Nutrition/Malnutrition Assess - Dietary Evaluation Nutrition/Malnutrition Findings: Nutrition Notes Start: 02/27/20 11 :10 Freq: Status: Active Protocol: Document 03/03/20 12:23 LM (Rec: 03/03/20 12:26 LM [id number]) Nutrition Notes Initial or Follow up Reassessment Current Diagnosis Heart Failure Other Pertinent Diagnosis vascular dementia, GI bleed, hyponatremia, gout, multiple wounds Current Diet Pureed/cardiac/consistent CHO Labs/Tests Reviewed Pertinent Medications NS at 50ml/hr Humalog Height 5 ft 1 in Weight 69.9 kg [place] Body Weight (kg) 50.90 BMI 29.1 Weight Status Overweight Subjective/Other Information TF no longer in diet orders. Spoke with RN and TF will restart. Observed breakfast tray untouched. Percent of energy/protein needs met: 0%/0% Burn Absent Trauma Absent GI Symptoms None Minimum of two criteria No physical signs of malnutrition #2 Nutrition Diagnosis Increased nutrient needs ( specify in comment below) Diagnosis Progress(for reassessment Continues documentation) #1 Nutrition Diagnosis Inadequate oral intake Diagnosis Progress(for reassessment Continues documentation) Is patient on ventilator? No Is Patient Ambulatory and/or Out of Bed No REE-([facility]-confined to bed) 1563.216 Calculation Used for Recommendations [facility] Additional Notes Protein Needs: 87-105 g (1.25- 1.5 g/kg) Fluid Needs: 1 mL/kcal Nutrition Intervention Change Diet Order: TF + Pureed w/ thin liquids ( per [facility] recomendations) Nutrition Support: Glucerna 1.2 at 55 mL/hr (goal rate) Flush 85 mL q4h. Kcal 1,584 Protein (gm) 79 Fluid (mL) 1,063 Goal #1 Meet at least 80% of estimated energy and protein needs via PO/TF Anticipated Discharge Needs: Enteral nutrition support Follow-Up By: 03/05/20 Additional Comments F/U for TF restart/PO intakes
[2020-03-04] MEDS: ASPIRIN 81 MG TAB CHEW PO SCH (09:32)
[2020-03-04] MEDS: MULTIVITAMINS 5 ML ORAL LIQUID FEEDTUBE SCH (09:32)
[2020-03-04] MEDS: LANSOPRAZOLE 30 MG SOLUTAB FEEDTUBE SCH (09:32)
[2020-03-04] MEDS: SODIUM CHLORIDE 0.9% 1000 ML 1,000 ML IV SCH (09:34)
--- NOTE | 2020-03-04 13:50 | Discharge Summary ---
Providers - Providers Date of Admission: 02/26/20 14:44 Date of discharge: 03/04/20 Attending physician: ERICA CONTRERAS MD 02/26/20 13:12 Consult to Physician [CONS] Urgent Comment: Dr. Tan notified @ 14:30- [facility] Consulting Provider: AGUILA TAN Physician Instructions: Reason For Exam: lgib 02/27/20 07:14 Consult to Wound/ET Nurse [CONS] Routine Reason For Exam: wound eval 02/27/20 15:44 Consult to Dietitian/Nutrition [CONS] Routine Physician Instructions: Reason For Exam: Reason for Consult: Write/Manage Tube Feeding 02/27/20 16:30 Speech Therapy Evaluation and Treat [CONS] Routine Reason For Exam: poor PO intake; at [place], patient PEG + PO 03/03/20 08:50 Physical Therapy Evaluation and Treat [CONS] Routine Comment: Reason For Exam: Deconditioning 03/03/20 08:51 Occupational Therapy Evaluate and Treat [CONS] Routine Comment: Reason For Exam: Deconditioning Primary care physician: PLANNING MANAGEMENT IT SPECIALIST Hospitalization Reason for admission: Recurrent GI bleed, severe anemia Condition: Serious Procedures: colonoscopy Hospital course: History of present illness: 74 YO Male 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 Patient is confused with diminished cognition and unable to provide detailed history. Patient history taken from EMS staff, ED staff as well as [facility] facility staff. As per staff the patient was found to have large volume rectal bleeding today. EMS was notified and upon arrival the patient was found to be in distress and subsequently transported to [facility] for further care and evaluation of the aforementioned symptoms. Patient seen and evaluated in the emergency department. Lab and imaging studies reviewed. Patient found to be Hemoccult positive. Patient found to have symptoms consistent with GI bleed, hyponatremia. Patient admitted to [facility] and initiated on GI bleed protocol. Patient also treated with blood transfusion for concomitant symptomatic anemia. GI team consulted in ED. Patient pending endoscopy as per GI team. Patient is confused with diminished cognition but has positive gag reflex and is able to protect his airway without difficulty. No prior admission for review. No further history is obtainable. All medication listed at time of admission has been reconciled. GI bleed Hx of recurrent GI bleed at [facility]; EGD (-) x 2; R Hemicolectomy then subtotal colectomy 11/2019 for colonic bleeding Hypernatremia D5 water, CMP, repeat CMP in a.m. Symptomatic anemia Patient has been on coumadin x 7 years for portal vein thrombosis, but no recent imaging of PV at [place], and not clear he needs this (does have a hx of severe PAD as well as CHF 40%) Metabolic encephalopathy Neuro check, seizure precautions, aspiration precautions, fall precautions, supportive care. Chronic systolic heart failure. EF 40%. Compensated Vascular dementia Verbal prompting, verbal redirection, benzodiazepine therapy as clinically indicated, supportive care. Cerebral atherosclerosis Supportive care, risk factor reduction, low-cholesterol diet. Portal vein thrombosis Hold anticoagulation for now due to active GI bleed, supportive care Severe PAD. DVT prophylaxis SCD to bilateral lower extremities while in bed, hold anticoagulation now due to active GI bleed. 02/28/2020. Patient with episode of black tarry stool last night and a second episode this morning. Patient is s/p EGD on 02/27/2020 which revealed no evidence of upper GI bleeding and no varices in the stomach or esophagus. Check serial CBC. GI may need to perform SB enteroscopy. However, GI may consider palliative care discussion. Hold Plavix for today. 02/29/2020. Patient is s/p EGD on 02/27/2020. No evidence of upper GI bleeding. PEG in place. Preliminary nuclear medicine bleeding scan showed no evidence of bleeding over 1 hour. GI considering small bowel enteroscopy. Patient has received a total of 3 units PRBCs since admission. Patient with more episodes of black tarry stools occurring last night as well as this morning per nursing. Recheck CBC later today. 03/01/2020. Enteroscopy/ileoscopy completed by GI which revealed postsurgical changes in the rectum and ileocolonic anastomosis with few small diverticula in the ileum. No evidence of upper GI bleeding. Continue PPI and monitor H&H serially. Transfuse as needed. 03/02/2020. Enteroscopy/ileoscopy completed by GI which revealed postsurgical changes in the rectum and ileocolonic anastomosis with few small diverticula in the ileum. No evidence of upper GI bleeding. Continue PPI and monitor H&H serially. We will transfuse a unit of blood because he has dark stool. Monitor H&H. Prognosis guarded 03/03/2020; Enteroscopy/ileoscopy completed by GI which revealed postsurgical changes in the rectum and ileocolonic anastomosis with few small diverticula in the ileum. No evidence of upper GI bleeding. Continue PPI and monitor H&H serially. Patient was transfused a unit of blood yesterday and hemoglobin this morning is 8.3. I will consult PT OT evaluation. Continue tube feeding. GI is okay to start aspirin for peripheral arterial disease. 03/04/2020; patient's H&H is stable. Patient was evaluated by PT and recommended SNF. Covid test ordered. GI consult appreciated. Covid test was done and negative and patient discharged back to SNF. Patient is hemodynamically stable at the time of discharge. Management plan was discussed with the patient. Disposition: [id number]/[id number] SNF [facility] Time spent for discharge: 34 minutes - Discharge Diagnoses (1) Recurrent gastrointestinal hemorrhage Status: Acute (2) Symptomatic anemia Status: Acute (3) Vascular dementia Status: Acute Qualifiers: Dementia behavioral disturbance: without behavioral disturbance Qualified Code(s): F01.50 - Vascular dementia without behavioral disturbance Core Measure Documentation - Palliative Care Palliative Care/ Comfort Measures: Not Applicable - Core Measures Any of the following diagnoses?: none Exam - Physical Exam Narrative exam: Not in cardiopulmonary distress. The patient appeared well nourished and normally developed. Vital signs as documented. Head exam is unremarkable. No scleral icterus . Neck is without jugular venous distension, thyromegaly, or carotid bruits. Lungs are clear to auscultation. Cardiac exam reveals regular rate and Rhythm. Abdominal exam reveals normal bowel sounds, nontender, no organomegaly. Extremities are nonedematous and both femoral and pedal pulses are normal. DISPATCHER MAINTENANCE: Alert. - Constitutional Vitals: Temp Pulse Resp BP Pulse Ox 97.8 F 113 H 20 171/92 96 03/04/20 08:20 03/04/20 12:00 03/04/20 08:20 03/04/20 08:20 03/04/20 08:20 Plan Activity: advance as tolerated Weight Bearing Status: Weight Bear as Tolerated Diet: regular Follow up with: PRIMARY CAREMD [Primary Care Provider] - 7 Days Forms: Accompanied Note
--- NOTE | 2020-03-04 14:47 | Gastroenterology Progress Note ---
Assessment and Plan # GI bleed - Hx of recurrent GI bleed at [place]; EGD (-) x 2; R Hemicolectomy then subtotal colectomy 11/2019 for colonic bleeding - No hematemesis or bleeding around PEG - Patient has been on coumadin x 7 years for portal vein thrombosis, but no recent imaging of PV at [place], and not clear he needs this (does have a hx of severe PAD as well as CHF 40%) - Suspect a small bowel source - s/p EGD on 02/27/2020. No evidence of upper GI bleeding. PEG in place. - drop H/H on 02/28/2020 and received blood transfusion. - NM bleeding scan without any active bleeding signs. - s/p push enterscopy and ileoscopy on 03/01/2020. No signs of bleeding and no source of bleeding found. Tattoo in small bowel to shahrzad the location reached. - H/H stable. no further bleeding episodes. Rec - monitor H/H. - currently on ASA for PAD. - Ok for discharge per GI standpoint. Subjective Date of service: 03/04/20 Interval history: Patient without any BM today. No abdominal pain. Objective - Constitutional Vitals: Temp Pulse Resp BP Pulse Ox 98.9 F 118 H 20 167/90 96 03/04/20 12:44 03/04/20 12:44 03/04/20 08:20 03/04/20 12:44 03/04/20 12:44 General appearance: no acute distress - EENT Eyes: EOM intact ENT: hearing intact - Neck Neck: supple - Respiratory Respiratory effort: normal - Cardiovascular Rhythm: regular Heart Sounds: Present: S1 & S2 - Gastrointestinal General gastrointestinal: Present: soft, non-tender, non-distended - Integumentary Integumentary: Present: clear, warm - Labs CBC & Chem 7: 03/04/20 04:29 03/04/20 04:29 Labs: Laboratory Results - last 24 hr 03/03/20 03/04/20 03/04/20 19:04 00:07 04:29 WBC 11.4 H RBC 2.69 L Hgb 7.9 L Hct 24.7 L MCV 92 MCH 29 MCHC 32 RDW 19.3 H Plt Count 244 Lymph % (Auto) 4.3 L [place] % (Auto) 5.7 Eos % (Auto) 0.3 Baso % (Auto) 0.1 Lymph # (Auto) 0.5 L [place] # (Auto) 0.7 Eos # (Auto) 0.0 Baso # (Auto) 0.0 Seg Neutrophils % 89.6 H Seg Neutrophils # 10.2 H Sodium Potassium Chloride Carbon Dioxide Anion Gap BUN Creatinine Estimated GFR BUN/Creatinine Ratio Glucose POC Glucose 163 H 101 Calcium Coronavirus (PCR) 03/04/20 03/04/20 03/04/20 04:29 06:51 11:52 WBC RBC Hgb Hct MCV MCH MCHC RDW Plt Count Lymph % (Auto) [place] % (Auto) Eos % (Auto) Baso % (Auto) Lymph # (Auto) [place] # (Auto) Eos # (Auto) Baso # (Auto) Seg Neutrophils % Seg Neutrophils # Sodium 147 H Potassium 3.7 Chloride 117.1 H Carbon Dioxide 15 L Anion Gap 19 BUN 18 Creatinine 0.6 L Estimated GFR > 60 BUN/Creatinine Ratio 30 Glucose 136 H POC Glucose 156 H 167 H Calcium 8.0 L Coronavirus (PCR) 03/04/20 Unknown WBC RBC Hgb Hct MCV MCH MCHC RDW Plt Count Lymph % (Auto) [place] % (Auto) Eos % (Auto) Baso % (Auto) Lymph # (Auto) [place] # (Auto) Eos # (Auto) Baso # (Auto) Seg Neutrophils % Seg Neutrophils # Sodium Potassium Chloride Carbon Dioxide Anion Gap BUN Creatinine Estimated GFR BUN/Creatinine Ratio Glucose POC Glucose Calcium Coronavirus (PCR) Negative
[2020-03-05 00:39] VITALS: BP 146/85
[2020-03-05] MEDS: INSULIN LISPRO 100 UNIT/ML VIAL 3 mL SUB-Q SCH (04:35)
== END 2020-03-05 05:05 | DRG 377 ==
LOC: ED 11:56 → IMCU 14:44 → 4A 03-02 17:22
PROVIDERS: ADMIT Internal Medicine; ATTEND Internal Medicine
PROC: 30233N1 Transfusion of Nonautologous Red Blood Cells into Peripheral Vein, Percutaneous Approach (ICD-10-PCS; 2020-02-26)
PROC: 0DJ08ZZ Inspection of Upper Intestinal Tract, Via Natural or Artificial Opening Endoscopic (ICD-10-PCS; principal; 2020-02-27)
PROC: 0DJD8ZZ Inspection of Lower Intestinal Tract, Via Natural or Artificial Opening Endoscopic (ICD-10-PCS; 2020-03-01)
PROC: 0DJ08ZZ Inspection of Upper Intestinal Tract, Via Natural or Artificial Opening Endoscopic (ICD-10-PCS; 2020-03-01)
PROC: 0DJD8ZZ Inspection of Lower Intestinal Tract, Via Natural or Artificial Opening Endoscopic (ICD-10-PCS; 2020-03-01)
DX: K92.2 Gastrointestinal hemorrhage, unspecified (principal); G93.41 Metabolic encephalopathy; E87.0 Hyperosmolality and hypernatremia; I82.439 Acute embolism and thrombosis of unspecified popliteal vein; I50.22 Chronic systolic (congestive) heart failure; M10.9 Gout, unspecified; F01.50 Vascular dementia, unspecified severity, without behavioral disturbance, psychotic disturbance, mood disturbance, and anxiety; M19.90 Unspecified osteoarthritis, unspecified site; E11.51 Type 2 diabetes mellitus with diabetic peripheral angiopathy without gangrene; I25.10 Atherosclerotic heart disease of native coronary artery without angina pectoris; Z20.828 Contact with and (suspected) exposure to other viral communicable diseases; D53.9 Nutritional anemia, unspecified; I11.0 Hypertensive heart disease with heart failure; Z89.431 Acquired absence of right foot; Z85.038 Personal history of other malignant neoplasm of large intestine; Z90.49 Acquired absence of other specified parts of digestive tract; Z79.01 Long term (current) use of anticoagulants; Z82.49 Family history of ischemic heart disease and other diseases of the circulatory system; Z95.820 Peripheral vascular angioplasty status with implants and grafts; Z79.899 Other long term (current) drug therapy
CPT/HCPCS: 36415; 71045; 78278; 80048; 80053; 81001; 82550; 82962; 83735; 84443; 85007; 85014; 85018; 85025; 85027; 85610; 85730; 86850; 86900; 86901; 86920; 87086; 87116; 93005; 96365; 96372; 96375; G0378; A9560; C9113; J0171; J2370; J2704; J3010; J3430; J7030; J7040; J7070; J7195; P9016; U0003